=== PATIENT | female | born 2000 | race Caucasian/White ===

== ENCOUNTER 2023-05-07 17:58 | Emergency (ER) | payer OTHER ==
--- OUTSIDE RECORDS SUMMARY | 2023-05-07 18:29 | XMS REPORT | Continuity of Care Document ---
:2000 Author Organization [facility] t Address [address] [facility] [address] [place] [address] Care Team Providers Name Role Phone Tyler Lazcano MD Primary Care Physician Taylor Thrasher Attending Clinician Unavailable Codie Gibbs Attending Clinician Unavailable RAEANN ALEJANDRE Attending Clinician Unavailable TALI REYES Attending Clinician Unavailable Tali Ellison Attending Clinician Unknown, Attending Attending Clinician Unavailable Lab, [facility] Attending Clinician Unavailable Raeann Alejandre MD Attending Clinician Doctor Unassigned, [place] Attending Clinician Unavailable BRYN RAHMAN Attending Clinician Unavailable Jackie BARRAZA, Bryn Lindsey Attending Clinician MERCEDES BELL Attending Clinician Unavailable Willian BARRAZA, Adam Attending Clinician Gregor Rojas Attending Clinician Unavailable UNKNOWN, ATTENDING Attending Clinician Unavailable Princess Sage MD Attending Clinician Pamela Owen MD Attending Clinician ADAM CHRISTIAN Attending Clinician Unavailable Neymar Arrieta Attending Clinician Unavailable HANSA MOSCOSO Attending Clinician Unavailable PAMELA OWEN Attending Clinician Unavailable Manuel Trinh Attending Clinician Unavailable Marcin BARRAZA, Toni Attending Clinician TONI DE OLIVEIRA Attending Clinician Unavailable Alek MCGILLSW, Aydee Pratt Attending Clinician Neno BARRAZA, Tyler Ceja Attending Clinician Maykel Dutta MD Attending Clinician Lisa MULLEN, Linn Alcantara Attending Clinician Unavailable Madhavi MCGILLSW, Matilde Benavides Attending Clinician Unavailable Ebony Alcantara MD Attending Clinician EBONY ALCANTARA Attending Clinician Unavailable Mo BARRAZA, Laura Guzmán Attending Clinician [phone] Bishop BONDS, Ariana Attending Clinician Taylor Thrasher Admitting Clinician Unavailable EBONY ALCANTARA Admitting Clinician Unavailable Payers Payer Name Policy Type Policy Number Effective Date Expiration Date [facility] [id number] 2017 CHOICE MEDICAID 00:00:00 Problems Condition Condition Condition Status Onset Resolution Last Treating Co mments Source Name Details Category Date Date Treatment Clinician Date Rubella Rubella Disease Active Univers non-immune non-immune 6-16 it y of status, status, 00:00: [place] antepartum antepartum 00 Me dical Branch Susceptibl Susceptibl Disease Active U nivers e to e to 6-16 ity of Varicella Varicella 00:00: [place] (non-immun (non-immun 00 Me dical e), e), Branch currently currently in second in second trimester trimester Supervisio Supervisio Disease Active U nivers n of young n of young 6-15 it y of primigravi primigravi [place] da, second da, second 00 Me dical trimester trimester Bran ch Disease Active Uni vers examinatio examinatio 6-15 it y of n or test, n [place] test, [place] positive positive 00 Medica l result result Branch Drug use Drug use Disease Active Unive rs affecting affecting 6-15 ity of , , [place] antepartum antepartum 00 Me dical , second , second Branch trimester trimester History of History of Disease Active U nivers seizure seizure 6-15 ity of 00:00: [place] [facility] Overweight Overweight Disease Active U nivers (BMI (BMI 6-15 ity of 25.0-29.9) 25.0-29.9) [place] 00 [place] History of History of Disease Active U nivers anxiety anxiety 6-15 ity of 00:00: [place] [facility] History of History of Disease Active U nivers depression depression 6-15 it y of 00:00: [place] [facility] Seizure Seizure Disease Active Method[facility] disorder disorder 6-07 st during during 00:00: [facility] l in second in second trimester trimester Anxiety, Anxiety, Disease Active 2014-08 Unive rs UNSPECIFIE UNSPECIFIE 2-23 it y of D-BY HX D-BY HX 00:00: [place] [facility] Bipolar Bipolar Disease Active 2014-08 Univers affective affective 2-23 [place] of disorder, disorder, [place] depressed[place] depressed, 00 Me dical severe, severe, Branch with with psychotic psychotic behavior behavior (R/O (R/O BIPOLAR I BIPOLAR I VS II VS VS II VS MDD ) MDD ) Depression Depression Disease Active 2014-08 U nivers 1-25 ity of 00:00: Medical Branch Allergies, Adverse Reactions, Alerts Allergy Allergy Status Severity Reaction(s) Onset Inactive Treating Comm ents Source Name Type Date Date Clinician No Known DA Active U [facility]ie 9-07 Clear s 00:00: Sandhu 00 [facility] No Known DA Active U 2022- [facility] Allergie 7-05 Clear s 00:00: Sandhu [facility] No Known DA Active U [facility] Allergie 9-18 Clear s 00:00: Sandhu 00 [facility] No Known DA Active U 2019- [facility] Allergie 2-08 [place] 00:[facility]: d 00 [facility] No Known DA Active U 2019- [facility] Allergie 2-08 Clear s 00:00: Sandhu 00 [facility] No Known DA Active U 2016- [facility] Allergie 7-18 Clear s 00:00: Sandhu 00 [facility] No Known DA Active U 2016- [facility] Allergie 7-18 Clear s 00:00: Sandhu 00 [facility] NO KNOWN Drug Active Univers ALLERGIE Class ity of S [facility] Social History Social Habit Start Date Stop Date Quantity Comments Source ASSERTION [facility] Gender identity Cheondoism [facility] Sexual orientation [facility] Exposure to 2022-11-06 2022-11-16 Not sure [facility] SARS-CoV-2 (event) 00:00:00 19:12:00 [facility] Alcohol intake 2022-11-16 2022-11-16 0 /d University of 00:00:00 00:00:00 [facility] Tobacco use and 2022-10-27 2022-10-27 Smokeless Universit y of exposure 00:00:00 00:00:00 tobacco non-user [facility] Sex Assigned At 2002 2002 Che[facility]ism 00:00:00 00:00:00 Hospital Smoking Status Start Date Stop Date Source [facility] Medications Ordered Filled Start Stop Current Ordering Indication Dosage Frequency Signature Comments Components Source Medication Medication Date Date Medication? Clinician (SIG) Name Name penicillin 2022- No [id number] 1.210 U nivers g 11-17 ity of benzathine 00:15: 00:23 [place] (BICILLIN 00 :00 Medical L-A) Branch injection 1.2 Million Units penicillin 2022- No [id number] 1.210 1.2 U nivers g 11-17 Million ity of benzathine 00:15: 00:23 [place] (BICILLIN 00 :00 Intramuscu Medi anabel L-A) lar, ONCE, Branch injection 1 dose, On 1.2 Million Ilda Units 11/16/22 at 1930, CARLOS
Re ason for Anti-Infec tive: Documented Infection< br>Documen tiffanie Infection Site: HEENT
D uration of Therapy: Other (see Comments) penicillin 2022- No [id number] 1.210 U nivers g 11-17 ity of benzathine 00:15: 00:23 [place] (BICILLIN 00 :00 Medical L-A) Branch injection 1.2 Million Units penicillin 0 2022- No [id number] 1.210 1.2 U nivers g 11-17 Million ity of benzathine 00:15: 00:23 [place] (BICILLIN 00 :00 Intramuscu Medi anabel L-A) lar, ONCE, Branch injection 1 dose, On 1.2 Million Ilda Units 11/16/22 at 1930, CARLOS
Re ason for Anti-Infec tive: Documented Infection< br>Documen tiffanie Infection Site: HEENT
D uration of Therapy: Other (see Comments) acetaminoph 2022-0 Yes 325mg Take 1 Uni vers en 325 mg 3-10 tablet by ity o f tablet 08:17: mouth. [address] acetaminoph 2022-0 Yes 325mg Take 1 Uni vers en 325 mg 3-10 tablet by ity o f tablet 08:17: mouth. [address] acetaminoph 2023-0 Yes 325mg Take 1 Uni vers en 325 mg 3-10 tablet by ity o f tablet 08:17: mouth. [address] acetaminoph 3-0 Yes 325mg Take 1 Uni vers en 325 mg 3-10 tablet by ity o f tablet 08:17: mouth. [address] acetaminoph 3-0 Yes 325mg Take 1 Uni vers en 325 mg 3-10 tablet by ity o f tablet 08:17: mouth. [address] acetaminoph 3-0 Yes 325mg Take 1 Uni vers en 325 mg 3-10 tablet by ity o f tablet 08:17: mouth. [address] acetaminoph 2023-0 Yes 325mg Take 1 Uni vers en 325 mg 3-10 tablet by ity o f tablet 08:17: mouth. [address] acetaminoph 2023-0 Yes 325mg Take 1 Uni vers en 325 mg 3-10 tablet by ity o f tablet 08:17: mouth. [address] acetaminoph 2023-0 Yes 325mg Take 1 Uni vers en 325 mg 3-10 tablet by ity o f tablet 08:17: mouth. [address] acetaminoph 2023-0 Yes 325mg Take 1 Uni vers en 325 mg 3-10 tablet by ity o f tablet 08:17: mouth. [address] levETIRAcet 2022-0 Yes [id number] 1500mg Take 2 Univers am (KEPPRA) 3-10 tablets by it y of 750 mg 00:00: mouth in [place] tablet 00 the Medical morning Branch and 2 tablets in the evening. levETIRAcet 2022-0 Yes [id number] 1500mg Take 2 Univers am (KEPPRA) 3-10 tablets by it y of 750 mg 00:00: mouth in [place] tablet 00 the Medical morning Branch and 2 tablets in the evening. levETIRAcet 2022-0 Yes [id number] 1500mg Take 2 Univers am (KEPPRA) 3-10 tablets by it y of 750 mg 00:00: mouth in [place] tablet 00 the Medical morning Branch and 2 tablets in the evening. levETIRAcet 2022-0 Yes [id number] 1500mg Take 2 Univers am (KEPPRA) 3-10 tablets by it y of 750 mg 00:00: mouth in [place] tablet 00 the Medical morning Branch and 2 tablets in the evening. levETIRAcet 2022-0 Yes [id number] 1500mg Take 2 Univers am (KEPPRA) 3-10 tablets by it y of 750 mg 00:00: mouth in [place] tablet 00 the Medical morning Branch and 2 tablets in the evening. levETIRAcet 3-0 Yes [id number] 1500mg Take 2 Univers am (KEPPRA) 3-10 tablets by it y of 750 mg 00:00: mouth in [place] tablet 00 the [facility] morning Branch and 2 tablets in the evening. levETIRAcet 3-0 Yes [id number] 1500mg Take 2 Univers am (KEPPRA) 3-10 tablets by it y of 750 mg 00:00: mouth in [place] tablet 00 the Medical morning Branch and 2 tablets in the evening. levETIRAcet 2022-0 Yes [id number] 1500mg Take 2 Univers am (KEPPRA) 3-10 tablets by it y of 750 mg 00:00: mouth in [place] tablet 00 the Medical morning Branch and 2 tablets in the evening. levETIRAcet 2022-0 Yes [id number] 1500mg Take 2 Univers am (KEPPRA) 3-10 tablets by it y of 750 mg 00:00: mouth in [place] tablet 00 the Medical morning Branch and 2 tablets in the evening. levETIRAcet 2022-0 Yes [id number] 1500mg Take 2 Univers am (KEPPRA) 3-10 tablets by it y of 750 mg 00:00: mouth in [place] tablet 00 the Medical morning Branch and 2 tablets in the evening. VITAFOL 2022-0 Yes Univers ULTRA 29 mg 3-03 ity of iron- 1 00:00: [place] mg-200 mg 00 Medical Cap Branch VITAFOL 2022-0 Yes Univers ULTRA 29 mg 3-03 ity of iron- 1 00:00: [place] mg-200 mg 00 Medical Cap Branch VITAFOL 2022-0 Yes Univers ULTRA 29 mg 3-03 ity of iron- 1 00:00: [place] mg-200 mg 00 Medical Cap Branch VITAFOL 2022-0 Yes Univers ULTRA 29 mg 3-03 ity of iron- 1 00:00: [place] mg-200 mg 00 Medical Cap Branch VITAFOL 2022-0 Yes Univers ULTRA 29 mg 3-03 ity of iron- 1 00:00: [place] mg-200 mg 00 Medical Cap Branch VITAFOL 2022-0 Yes Univers ULTRA 29 mg 3-03 ity of iron- 1 00:00: [place] mg-200 mg 00 Medical Cap Branch VITAFOL 2022-0 Yes Univers ULTRA 29 mg 3-03 ity of iron- 1 00:00: [place] mg-200 mg 00 Medical Cap Branch VITAFOL 2022-0 Yes Univers ULTRA 29 mg 3-03 ity of iron- 1 00:00: [place] mg-200 mg 00 Medical Cap Branch VITAFOL 2022-0 Yes Univers ULTRA 29 mg 3-03 ity of iron- 1 00:00: [place] mg-200 mg 00 Medical Cap Branch VITAFOL 0 Yes Univers ULTRA 29 mg 3-03 ity of iron- 1 00:00: [place] mg-200 mg 00 Medical Cap Branch levETIRAcet 2021-08- No [id number] 1000mg Take 1 Univers am (KEPPRA) 09-02 tablet by it y of 1,000 mg 00:00: 05:59 [place] tablet [place] :00 the Medical morning Branch and 1 tablet at noon and 1 tablet in the evening. Do all this for 90 days. levETIRAcet 2021-08- No [id number] 1000mg Take 1 Univers am (KEPPRA) 09-02 tablet by it y of 1,000 mg 00:00: 05:59 [place] tablet 00 :00 the Medical morning Branch and 1 tablet at noon and 1 tablet in the evening. Do all this for 90 days. levETIRAcet 2021-08- No [id number] 1000mg Take 1 Univers am (KEPPRA) 09-02 tablet by it y of 1,000 mg 00:00: 05:59 [place] tablet 00 :00 the Medical morning Branch and 1 tablet at noon and 1 tablet in the evening. Do all this for 90 days. LEVETIRACET Yes [id number] TAKE 2 U nivers AM 1,000 mg 7-11 TABLETS BY it y of tablet 00:00: MOUTH TWICE A Medical DAY Branch LEVETIRACET 0 Yes [id number] TAKE 2 U nivers AM 1,000 mg 7-11 TABLETS BY it y of tablet 00:00: MOUTH TWICE A Medical DAY Branch LEVETIRACET 2021-0 Yes [id number] TAKE 2 U nivers AM 1,000 mg 7-11 TABLETS BY it y of tablet 00:00: MOUTH TWICE A Medical DAY Branch LEVETIRACET 2021-0 Yes [id number] TAKE 2 U nivers AM 1,000 mg 7-11 TABLETS BY it y of tablet 00:00: MOUTH TWICE A Medical DAY Branch LEVETIRACET 2021-0 Yes [id number] TAKE 2 U nivers AM 1,000 mg 7-11 TABLETS BY it y of tablet 00:00: MOUTH TWICE A Medical DAY Branch LEVETIRACET 2021-0 3- No [id number] TAKE 2 Univers AM 1,000 mg 7-11 03-10 TABLETS BY i ty of tablet 00:00: 00:00 MOUTH [place] 00 :00 TWICE A Medical DAY Branch LEVETIRACET 2021-0 2023- No [id number] TAKE 2 Univers AM 1,000 mg 7-11 03-10 TABLETS BY i ty of tablet 00:00: 00:00 MOUTH [place] 00 :00 TWICE A Medical DAY Branch LEVETIRACET 2021-0 2023- No [id number] TAKE 2 Univers AM 1,000 mg 7-11 03-10 TABLETS BY i ty of tablet 00:00: 00:00 MOUTH [place] 00 :00 TWICE A Medical DAY Branch LEVETIRACET 2021-0 3- No [id number] TAKE 2 Univers AM 1,000 mg 7-11 03-10 TABLETS BY i ty of tablet 00:00: 00:00 MOUTH [place] 00 :00 TWICE A Medical DAY Branch LEVETIRACET 2021-0 3- No [id number] TAKE 2 Univers AM 1,000 mg 7-11 03-10 TABLETS BY i ty of tablet 00:00: 00:00 MOUTH [place] 00 :00 TWICE A Medical DAY Branch LEVETIRACET 2021-0 3- No [id number] TAKE 2 Univers AM 1,000 mg 7-11 03-10 TABLETS BY i ty of tablet 00:00: 00:00 MOUTH [place] 00 :00 TWICE A Medical DAY Branch levETIRAcet 2021-0 Yes [id number] 2000mg Take 2 Univers am 1,000 mg 6-13 tablets by it y of tablet 00:00: mouth 2 [place] 00 (two) Medical times Branch daily. levETIRAcet 2021-0 2- No [id number] 2000mg Take 2 Univers am 1,000 mg 6-13 07-11 tablets by i ty of tablet 00:00: 00:00 mouth 2 [place] 00 :00 (two) Medical times Branch daily. foLIC acid 2021-0 Yes [id number] 1mg Take 1 Un sangeetha 1 mg tablet 4-20 tablet by ity of 00:00: mouth [place] 00 daily. Medical Branch foLIC acid 2021-0 Yes [id number] 1mg Take 1 Un sangeetha 1 mg tablet 4-20 tablet by ity of 00:00: mouth [place] 00 daily. Medical Branch foLIC acid 2-0 Yes [id number] 1mg Take 1 Un sangeetha 1 mg tablet 4-20 tablet by ity of 00:00: mouth [place] 00 daily. Medical Branch foLIC acid 2021-0 Yes [id number] 1mg Take 1 Un sangeetha 1 mg tablet 4-20 tablet by ity of 00:00: mouth [place] 00 daily. Medical Branch foLIC acid 2021-0 Yes [id number] 1mg Take 1 Un sangeetha 1 mg tablet 4-20 tablet by ity of 00:00: mouth [place] 00 daily. Medical Branch foLIC acid 2021-0 Yes [id number] 1mg Take 1 Un sangeetha 1 mg tablet 4-20 tablet by ity of 00:00: mouth [place] 00 daily. Medical Branch foLIC acid 2021-0 Yes [id number] 1mg Take 1 Un sangeetha 1 mg tablet 4-20 tablet by ity of 00:00: mouth [place] 00 daily. Medical Branch foLIC acid 2021-0 Yes [id number] 1mg Take 1 Un sangeetha 1 mg tablet 4-20 tablet by ity of 00:00: mouth [place] 00 daily. Medical Branch foLIC acid 2021-0 Yes [id number] 1mg Take 1 Un sangeetha 1 mg tablet 4-20 tablet by ity of 00:00: mouth [place] 00 daily. Medical Branch foLIC acid 2021-0 Yes [id number] 1mg Take 1 Un sangeetha 1 mg tablet 4-20 tablet by ity of 00:00: mouth [place] 00 daily. Medical Branch foLIC acid 2-0 Yes [id number] 1mg Take 1 Un sangeetha 1 mg tablet 4-20 tablet by ity of 00:00: mouth [place] 00 daily. Medical Branch foLIC acid 2-0 Yes [id number] 1mg Take 1 Un sangeetha 1 mg tablet 4-20 tablet by ity of 00:00: mouth [place] 00 daily. Medical Branch foLIC acid 2-0 Yes [id number] 1mg Take 1 Un sangeetha 1 mg tablet 4-20 tablet by ity of 00:00: mouth [place] 00 daily. Medical Branch foLIC acid 2-0 Yes [id number] 1mg Take 1 Un sangeetha 1 mg tablet 4-20 tablet by ity of 00:00: mouth [place] 00 daily. Medical Branch foLIC acid 2-0 Yes [id number] 1mg Take 1 Un sangeetha 1 mg tablet 4-20 tablet by ity of 00:00: mouth [place] 00 daily. Medical Branch foLIC acid 2021-0 Yes [id number] 1mg Take 1 Un sangeetha 1 mg tablet 4-20 tablet by ity of 00:00: mouth 00 daily. Medical Branch foLIC acid 2021-0 Yes [id number] 1mg Take 1 Un sangeetha 1 mg tablet 4-20 tablet by ity of 00:00: mouth 00 daily. Medical Branch foLIC acid 2021-0 Yes [id number] 1mg Take 1 Un sangeetha 1 mg tablet 4-20 tablet by ity of 00:00: mouth 00 daily. Medical Branch levETIRAcet 2020-0 Yes [id number] 2000mg Take 2 Univers am 1,000 mg 2-26 tablets by it y of tablet 00:00: mouth (two) Medical times Branch daily. levETIRAcet 2020-0 Yes [id number] 2000mg Take 2 Univers am 1,000 mg 2-26 tablets by it y of tablet 00:00: mouth (two) Medical times Branch daily. levETIRAcet 2020-2021- No [id number] 2000mg Take 2 Univers am 1,000 mg 2-26 06-13 tablets by i ty of tablet 00:00: 00:00 mouth 2 [place] 00 :00 (two) Medical times Branch daily. bacitracin- 2020-0 Yes [id number] Apply to Univers polymyxin B 4-05 [id number] area(s) 2 i ty of (POLYSPORIN 00:00: () ) 00 times Medical 500-10,000 daily. Branch unit/gram topical ointment ibuprofen 2020-0 Yes [id number] 600mg Take 1 Univers 600 mg 4-05 [id number] tablet by ity of tablet 00:00: mouth 00 every 8 Medical (eight) Branch hours as needed for Alternate with [place] for pain scale 1-3. bacitracin- 2020-0 Yes [id number] Apply to Univers polymyxin B 4-05 [id number] area(s) 2 i ty of (POLYSPORIN 00:00: () [place] ) 00 times Medical 500-10,000 daily. Branch unit/gram topical ointment ibuprofen 2020-0 Yes [id number] 600mg Take 1 Univers 600 mg 4-05 [id number] tablet by ity of tablet 00:00: mouth 00 every 8 Medical (eight) Branch hours as needed for Alternate with [place] for pain scale 1-3. bacitracin- 2020-0 Yes [id number] Apply to Univers polymyxin B 4-05 [id number] area(s) 2 i ty of (POLYSPORIN 00:00: () [place] ) 00 times Medical 500-10,000 daily. Branch unit/gram topical ointment ibuprofen 2020-0 Yes [id number] 600mg Take 1 Univers 600 mg 4-05 [id number] tablet by ity of tablet 00:00: mouth [place] 00 every 8 Medical (eight) Branch hours as needed for Alternate with [place] for pain scale 1-3. bacitracin- 2020-0 Yes [id number] Apply to Univers polymyxin B 4-05 [id number] area(s) 2 i ty of (POLYSPORIN 00:00: () [place] ) 00 times Medical 500-10,000 daily. Branch unit/gram topical ointment ibuprofen 2020-0 Yes [id number] 600mg Take 1 Univers 600 mg 4-05 [id number] tablet by ity of tablet 00:00: mouth [place] 00 every 8 Medical (eight) Branch hours as needed for Alternate with [place] for pain scale 1-3. bacitracin- 2020-0 Yes [id number] Apply to Univers polymyxin B 4-05 [id number] area(s) 2 i ty of (POLYSPORIN 00:00: () [place] ) 00 times Medical 500-10,000 daily. Branch unit/gram topical ointment ibuprofen 2020-0 Yes [id number] 600mg Take 1 Univers 600 mg 4-05 [id number] tablet by ity of tablet 00:00: mouth [place] 00 every 8 Medical (eight) Branch hours as needed for Alternate with [place] for pain scale 1-3. bacitracin- 2020-0 Yes [id number] Apply to Univers polymyxin B 4-05 [id number] area(s) 2 i ty of (POLYSPORIN 00:00: () [place] ) 00 times Medical 500-10,000 daily. Branch unit/gram topical ointment ibuprofen 2020-0 Yes [id number] 600mg Take 1 Univers 600 mg 4-05 [id number] tablet by ity of tablet 00:00: mouth [place] 00 every 8 Medical (eight) Branch hours as needed for Alternate with [place] for pain scale 1-3. bacitracin- 2020-0 Yes [id number] Apply to Univers polymyxin B 4-05 [id number] area(s) 2 i ty of (POLYSPORIN 00:00: (two) [place] ) 00 times Medical 500-10,000 daily. Branch unit/gram topical ointment ibuprofen 2020-0 Yes [id number] 600mg Take 1 Univers 600 mg 4-05 [id number] tablet by ity of tablet 00:00: mouth [place] 00 every 8 Medical (eight) Branch hours as needed for Alternate with [place] for pain scale 1-3. bacitracin- 2020-0 Yes [id number] Apply to Univers polymyxin B 4-05 [id number] area(s) 2 i ty of (POLYSPORIN 00:00: (two) [place] ) 00 times Medical 500-10,000 daily. Branch unit/gram topical ointment ibuprofen 2020-0 Yes [id number] 600mg Take 1 Univers 600 mg 4-05 [id number] tablet by ity of tablet 00:00: mouth [place] 00 every 8 Medical (eight) Branch hours as needed for Alternate with [place] for pain scale 1-3. ibuprofen 2020-0 Yes [id number] 600mg Take 1 Univers 600 mg 4-05 [id number] tablet by ity of tablet 00:00: mouth [place] 00 every 8 Medical (eight) Branch hours as needed for Alternate with [place] for pain scale 1-3. ibuprofen 2020-0 Yes [id number] 600mg Take 1 Univers 600 mg 4-05 [id number] tablet by ity of tablet 00:00: mouth [place] 00 every 8 Medical (eight) Branch hours as needed for Alternate with [place] for pain scale 1-3. ibuprofen 2020-0 Yes [id number] 600mg Take 1 Univers 600 mg 4-05 [id number] tablet by ity of tablet 00:00: mouth [place] 00 every 8 Medical (eight) Branch hours as needed for Alternate with [place] for pain scale 1-3. ibuprofen 2020-0 Yes [id number] 600mg Take 1 Univers 600 mg 4-05 [id number] tablet by ity of tablet 00:00: mouth [place] 00 every 8 Medical (eight) Branch hours as needed for Alternate with [place] for pain scale 1-3. ibuprofen 2020-0 Yes [id number] 600mg Take 1 Univers 600 mg 4-05 [id number] tablet by ity of tablet 00:00: mouth [place] 00 every 8 Medical (eight) Branch hours as needed for Alternate with [place] for pain scale 1-3. ibuprofen 2020-0 Yes [id number] 600mg Take 1 Univers 600 mg 4-05 [id number] tablet by ity of tablet 00:00: mouth [place] 00 every 8 Medical (eight) Branch hours as needed for Alternate with [place] for pain scale 1-3. ibuprofen 2020-0 Yes [id number] 600mg Take 1 Univers 600 mg 4-05 [id number] tablet by ity of tablet 00:00: mouth [place] 00 every 8 Medical (eight) Branch hours as needed for Alternate with [place] for pain scale 1-3. ibuprofen 2020-0 Yes [id number] 600mg Take 1 Univers 600 mg 4-05 [id number] tablet by ity of tablet 00:00: mouth [place] 00 every 8 Medical (eight) Branch hours as needed for Alternate with [place] for pain scale 1-3. ibuprofen 2020-0 Yes [id number] 600mg Take 1 Univers 600 mg 4-05 [id number] tablet by ity of tablet 00:00: mouth [place] 00 every 8 Medical (eight) Branch hours as needed for Alternate with [place] for pain scale 1-3. ibuprofen 2020-0 Yes [id number] 600mg Take 1 Univers 600 mg 4-05 [id number] tablet by ity of tablet 00:00: mouth [place] 00 every 8 Medical (eight) Branch hours as needed for Alternate with [place] for pain scale 1-3. bacitracin- 2019-0 2022- No [id number] Apply to Univers polymyxin B 4-05 03-10 [id number] area(s) 2 ity of (POLYSPORIN 00:00: 00:00 (two) [place] ) 00 :00 times Medical 500-10,000 daily. Branch unit/gram topical ointment bacitracin- 0 2022- No [id number] Apply to Univers polymyxin B 4-05 03-10 [id number] area(s) 2 ity of (POLYSPORIN 00:00: 00:00 (two) [place] ) 00 :00 times Medical 500-10,000 daily. Branch unit/gram topical ointment bacitracin- 2020-0 2022- No [id number] Apply to Univers polymyxin B 4-05 03-10 [id number] area(s) 2 ity of (POLYSPORIN 00:00: 00:00 (two) [place] ) 00 :00 times Medical 500-10,000 daily. Branch unit/gram topical ointment bacitracin- 2020-0 2023- No [id number] Apply to Univers polymyxin B 4-05 03-10 [id number] area(s) 2 ity of (POLYSPORIN 00:00: 00:00 (two[place] ) 00 :00 times Medical 500-10,000 daily. Branch unit/gram topical ointment bacitracin- 2020-0 2023- No [id number] Apply to Univers polymyxin B 4-05 03-10 [id number] area(s) 2 ity of (POLYSPORIN 00:00: 00:00 (two[place] ) 00 :00 times Medical 500-10,000 daily. Branch unit/gram topical ointment bacitracin- 2020-0 2023- No [id number] Apply to Univers polymyxin B 4-05 03-10 [id number] area(s) 2 ity of (POLYSPORIN 00:00: 00:00 (two[place] ) 00 :00 times Medical 500-10,000 daily. Branch unit/gram topical ointment mupirocin 2 2020-0 Yes [id number] Apply to Univers % ointment 2-04 area(s) 3 ity of 00:00: (three) [place] 00 times Medical daily. Branch mupirocin 2 2020-0 Yes [id number] Apply to Univers % ointment 2-04 area(s) 3 ity of 00:00: (three) [place] 00 times Medical daily. Branch mupirocin 2 2020-0 Yes [id number] Apply to Univers % ointment 2-04 area(s) 3 ity of 00:00: (three) [place] 00 times Medical daily. Branch mupirocin 2 2020-0 Yes [id number] Apply to Univers % ointment 2-04 area(s) 3 ity of 00:00: (three) [place] 00 times Medical daily. Branch mupirocin 2 2020-0 Yes [id number] Apply to Univers % ointment 2-04 area(s) 3 ity of 00:00: (three) [place] 00 times Medical daily. Branch mupirocin 2 2020-0 Yes [id number] Apply to [facility] % ointment 2-04 area(s) 3 ity of 00:00: (three) [place] 00 times Medical daily. Branch mupirocin 2 2020-0 Yes [id number] Apply to [facility] % ointment 2-04 area(s) 3 ity of 00:00: (three) [place] 00 times Medical daily. Branch mupirocin 2 2020-0 Yes [id number] Apply to [facility] % ointment 2-04 area(s) 3 ity of 00:00: (three) [place] 00 times Medical daily. Branch mupirocin 2 2020-0 Yes [id number] Apply to [facility] % ointment 2-04 area(s) 3 ity of 00:00: (three) [place] 00 times Medical daily. Branch mupirocin 2 2020-0 Yes [id number] Apply to [facility] % ointment 2-04 area(s) 3 ity of 00:00: (three) [place] 00 times Medical daily. Branch mupirocin 2 2020-0 Yes [id number] Apply to [facility] % ointment 2-04 area(s) 3 ity of 00:00: (three) [place] 00 times Medical daily. Branch mupirocin 2 2020-0 Yes [id number] Apply to [facility] % ointment 2-04 area(s) 3 ity of 00:00: (three) [place] 00 times Medical daily. Branch mupirocin 2 2020-0 Yes [id number] Apply to [facility] % ointment 2-04 area(s) 3 ity of 00:00: (three) [place] 00 times Medical daily. Branch mupirocin 2 2020-0 Yes [id number] Apply to [facility] % ointment 2-04 area(s) 3 ity of 00:00: (three) [place] 00 times Medical daily. Branch mupirocin 2 2020-0 Yes [id number] Apply to [facility] % ointment 2-04 area(s) 3 ity of 00:00: (three) [place] 00 times Medical daily. Branch mupirocin 2 2020-0 Yes [id number] Apply to [facility] % ointment 2-04 area(s) 3 ity of 00:00: (three) [place] 00 times Medical daily. Branch mupirocin 2 2020-0 Yes [id number] Apply to [facility] % ointment 2-04 area(s) 3 ity of 00:00: (three) [place] 00 times Medical daily. Branch mupirocin 2 2020-0 Yes [id number] Apply to [facility] % ointment 2-04 area(s) 3 ity of 00:00: (three) [place] 00 times Medical daily. Branch Yes [id number] 1{tbl} Take 1 [facility] multivitami 6-15 tablet by ity of n ( 00:00: mouth [place] VITAMIN) 00 daily. Medical tablet Branch Yes [id number] 1{tbl} Take 1 [facility] multivitami 6-15 tablet by ity of n ( 00:00: mouth [place] VITAMIN) 00 daily. Medical tablet Branch Yes [id number] 1{tbl} Take 1 [facility] multivitami 6-15 tablet by ity of n ( 00:00: mouth [place] VITAMIN) 00 daily. Medical tablet Branch Yes [id number] 1{tbl} Take 1 [facility] multivitami 6-15 tablet by ity of n ( 00:00: mouth [place] VITAMIN) 00 daily. Medical tablet Branch Yes [id number] 1{tbl} Take 1 [facility] multivitami 6-15 tablet by ity of n ( 00:00: mouth [place] VITAMIN) 00 daily. Medical tablet Branch Yes [id number] 1{tbl} Take 1 [facility] multivitami 6-15 tablet by ity of n ( 00:00: mouth [place] VITAMIN) 00 daily. Medical tablet Branch Yes [id number] 1{tbl} Take 1 [facility] multivitami 6-15 tablet by ity of n ( 00:00: mouth [place] VITAMIN) 00 daily. Medical tablet Branch Yes [id number] 1{tbl} Take 1 [facility] multivitami 6-15 tablet by ity of n ( 00:00: mouth [place] VITAMIN) 00 daily. Medical tablet Branch Yes [id number] 1{tbl} Take 1 [facility] multivitami 6-15 tablet by ity of n ( 00:00: mouth [place] VITAMIN) 00 daily. Medical tablet Branch Yes [id number] 1{tbl} Take 1 [facility] multivitami 6-15 tablet by ity of n ( 00:00: mouth [place] VITAMIN) 00 daily. Medical tablet Branch Yes [id number] 1{tbl} Take 1 [facility] multivitami 6-15 tablet by ity of n ( 00:00: mouth [place] VITAMIN) 00 daily. Medical tablet Branch Yes [id number] 1{tbl} Take 1 [facility] multivitami 6-15 tablet by ity of n ( 00:00: mouth [place] VITAMIN) 00 daily. Medical tablet Branch Yes [id number] 1{tbl} Take 1 [facility] multivitami 6-15 tablet by ity of n ( 00:00: mouth [place] VITAMIN) 00 daily. Medical tablet Branch Yes [id number] 1{tbl} Take 1 [facility] multivitami 6-15 tablet by ity of n ( 00:00: mouth [place] VITAMIN) 00 daily. Medical tablet Branch Yes [id number] 1{tbl} Take 1 [facility] multivitami 6-15 tablet by ity of n ( 00:00: mouth [place] VITAMIN) 00 daily. Medical tablet Branch Yes [id number] 1{tbl} Take 1 [facility] multivitami 6-15 tablet by ity of n ( 00:00: mouth [place] VITAMIN) 00 daily. Medical tablet Branch Yes [id number] 1{tbl} Take 1 [facility] multivitami 6-15 tablet by ity of n ( 00:00: mouth [place] VITAMIN) 00 daily. Medical tablet Branch Yes [id number] 1{tbl} Take 1 [facility] multivitami 6-15 tablet by ity of n ( 00:00: mouth [place] VITAMIN) 00 daily. Medical tablet Branch Yes 1{tbl} QD Take 1 [facility] di vit,calc76- 6-[address] iron-folic 21:01: mouth [facility] 29 mg iron- 31 every l 1 mg tablet morning. per tablet acetaminoph Yes 325mg Q6H Take 325 M ethodi en 6-[address] (TYLENOL) 21:01: mouth [facility] 325 MG 31 every 6 l tablet (six) hours as needed for fever. Yes 1{tbl} QD Take 1 [facility] di vit,calc76- 6-[address] iron-folic 21:01: mouth [facility] a 29 mg iron- 31 every l 1 mg tablet morning. per tablet acetaminoph Yes 325mg Q6H Take 325 M ethodi en 6-[address] (TYLENOL) 21:01: mouth [facility] 325 MG 31 every 6 l tablet (six) hours as needed for fever. Yes 1{tbl} QD Take 1 [facility] di vit,calc76- 6-[address] iron-folic 21:01: mouth [facility] a 29 mg iron- 31 every l 1 mg tablet morning. per tablet acetaminoph Yes 325mg Q6H Take 325 M ethodi en 6-[address] (TYLENOL) 21:01: mouth [facility] 325 MG 31 every 6 l tablet (six) hours as needed for fever. Yes 1{tbl} QD Take 1 [facility] di vit,calc76- 6-[address] iron-folic 21:01: mouth [facility] 29 mg iron- 31 every l 1 mg tablet morning. per tablet acetaminoph Yes 325mg Q6H Take 325 M ethodi en 6-[address] (TYLENOL) 21:01: mouth [facility] 325 MG 31 every 6 l tablet (six) hours as needed for fever. Immunizations Ordered Immunization Filled Immunization Date Status Commen ts Source Name Name TDAP (ADACEL) VACCINE 2019-09-23 Completed Uni versity of 00:00:00 [facility] TDAP (ADACEL) VACCINE 2019-09-23 Completed Uni versity of 00:00:00 [facility] TDAP (ADACEL) VACCINE 2019-09-23 Completed Uni versity of 00:00:00 [facility] TDAP (ADACEL) VACCINE 2019-09-23 Completed Uni versity of 00:00:00 [facility] TDAP (ADACEL) VACCINE 2019-09-23 Completed Uni versity of 00:00:00 [place] [facility] TDAP (ADACEL) VACCINE 2019-09-23 Completed Uni versity of 00:00:00 [place] [facility] TDAP (ADACEL) VACCINE 2019-09-23 Completed Uni versity of 00:00:00 [place] [facility] TDAP (ADACEL) VACCINE 2019-09-23 Completed Uni versity of 00:00:00 [facility] TDAP (ADACEL) VACCINE 2019-09-23 Completed Uni versity of 00:00:00 [facility] TDAP (ADACEL) VACCINE 2019-09-23 Completed Uni versity of 00:00:00 [facility] TDAP (ADACEL) VACCINE 2019-09-23 Completed Uni versity of 00:00:00 [place] [facility] TDAP (ADACEL) VACCINE 2019-09-23 Completed Uni versity of 00:00:00 [place] [facility] TDAP (ADACEL) VACCINE 2019-09-23 Completed Uni versity of 00:00:00 [place] [facility] TDAP (ADACEL) VACCINE 2019-09-23 Completed Uni versity of 00:00:00 [place] [facility] TDAP (ADACEL) VACCINE 2019-09-23 Completed Uni versity of 00:00:00 [place] [facility] TDAP (ADACEL) VACCINE 2019-09-23 Completed Uni versity of 00:00:00 [place] [facility] TDAP (ADACEL) VACCINE 2019-09-23 Completed Uni versity of 00:00:00 [facility] TDAP (ADACEL) VACCINE 2019-09-23 Completed Uni versity of 00:00:00 [facility] Influenza Virus 2015-07-14 Completed Universit y of Vaccine [facility] Nasal 00:00:00 [facility] HPV9 2015-07-14 Completed University of 00:00:00 [facility] Influenza Virus 2015-07-14 Completed Universit y of Vaccine [place] Nasal 00:00:00 [facility] HPV9 2015-07-14 Completed University of 00:00:00 [facility] Influenza Virus 2015-07-14 Completed Universit y of Vaccine [facility] Nasal 00:00:00 [facility] HPV9 2015-07-14 Completed University of 00:00:00 [facility] Influenza Virus 2015-07-14 Completed Universit y of Vaccine [facility] Nasal 00:00:00 [facility] HPV9 2015-07-14 Completed University of 00:00:00 [facility] Influenza Virus 2015-07-14 Completed Universit y of Vaccine [facility] Nasal 00:00:00 [facility] HPV9 2015-07-14 Completed University of 00:00:00 [facility] Influenza Virus 2015-07-14 Completed Universit y of Vaccine [place] Nasal 00:00:00 [facility] HPV9 2015-07-14 Completed University of 00:00:00 [facility] Influenza Virus 2015-07-14 Completed Universit y of Vaccine [facility] Nasal 00:00:00 [facility] HPV9 2015-07-14 Completed University of 00:00:00 [facility] Influenza Virus 2015-07-14 Completed Universit y of Vaccine [place] Nasal 00:00:00 [facility] HPV9 2015-07-14 Completed University of 00:00:00 [facility] Influenza Virus 2015-07-14 Completed Universit y of Vaccine [facility] Nasal 00:00:00 [facility] HPV9 2015-07-14 Completed University of 00:00:00 [facility] Influenza Virus 2015-07-14 Completed Universit y of Vaccine [place] Nasal 00:00:00 [facility] HPV9 2015-07-14 Completed University of 00:00:00 [facility] Influenza Virus 2015-07-14 Completed Universit y of Vaccine [facility] Nasal 00:00:00 [facility] HPV9 2015-07-14 Completed University of 00:00:00 [facility] Influenza Virus 2015-07-14 Completed Universit y of Vaccine [facility] Nasal 00:00:00 [facility] HPV9 2015-07-14 Completed University of 00:00:00 [facility] Influenza Virus 2015-07-14 Completed Universit y of Vaccine [facility] Nasal 00:00:00 [facility] HPV9 2015-07-14 Completed University of 00:00:00 [facility] Influenza Virus 2015-07-14 Completed Universit y of Vaccine [facility] Nasal 00:00:00 [facility] HPV9 2015-07-14 Completed University of 00:00:00 [facility] Influenza Virus 2015-07-14 Completed Universit y of Vaccine [facility] Nasal 00:00:00 [facility] HPV9 2015-07-14 Completed University of 00:00:00 [facility] Influenza Virus 2015-07-14 Completed Universit y of Vaccine [facility] Nasal 00:00:00 [facility] HPV9 2015-07-14 Completed University of 00:00:00 [facility] Influenza Virus 2015-07-14 Completed Universit y of Vaccine [facility] Nasal 00:00:00 [facility] HPV9 2015-07-14 Completed University of 00:00:00 [facility] Influenza Virus 2015-07-14 Completed Universit y of Vaccine [facility] Nasal 00:00:00 [facility] HPV9 2015-07-14 Completed University of 00:00:00 [facility] TDAP (ADACEL) VACCINE 2013-08-25 Completed Uni versity of 00:00:00 [facility] Meningococcal 2013-08-25 Completed University of Polysaccharide 00:00:00 [facility] (groups A, C, Y and Branc h W-135) conjugate vaccine (MCV4P) HPV 2013-08-25 Completed University of 00:00:00 [facility] Influenza Virus 2013-08-25 Completed Universit y of Vaccine Nasal 00:00:00 [place] [facility] TDAP (ADACEL) VACCINE 2013-08-25 Completed Uni versity of 00:00:00 [facility] Meningococcal 2013-08-25 Completed University of Polysaccharide 00:00:00 [place] [facility] (groups A, C, Y and Branc h W-135) conjugate vaccine (MCV4P) HPV 2013-08-25 Completed University of 00:00:00 [facility] Influenza Virus 2013-08-25 Completed Universit y of Vaccine Nasal 00:00:00 [place] [facility] TDAP (ADACEL) VACCINE 2013-08-25 Completed Uni versity of 00:00:00 [facility] Meningococcal 2013-08-25 Completed University of Polysaccharide 00:00:00 [place] [facility] (groups A, C, Y and Branc h W-135) conjugate vaccine (MCV4P) HPV 2013-08-25 Completed University of 00:00:00 [facility] Influenza Virus 2013-08-25 Completed Universit y of Vaccine Nasal 00:00:00 [place] [facility] TDAP (ADACEL) VACCINE 2013-08-25 Completed Uni versity of 00:00:00 [facility] Meningococcal 2013-08-25 Completed University of Polysaccharide 00:00:00 [place] [facility] (groups A, C, Y and Branc h W-135) conjugate vaccine (MCV4P) HPV 2013-08-25 Completed University of 00:00:00 [facility] Influenza Virus 2013-08-25 Completed Universit y of Vaccine Nasal 00:00:00 [place] [facility] TDAP (ADACEL) VACCINE 2013-08-25 Completed Uni versity of 00:00:00 [facility] Meningococcal 2013-08-25 Completed University of Polysaccharide 00:00:00 [place] [facility] (groups A, C, Y and Branc h W-135) conjugate vaccine (MCV4P) HPV 2013-08-25 Completed University of 00:00:00 [facility] Influenza Virus 2013-08-25 Completed Universit y of Vaccine Nasal 00:00:00 [place] [facility] TDAP (ADACEL) VACCINE 2013-08-25 Completed Uni versity of 00:00:00 [facility] Meningococcal 2013-08-25 Completed University of Polysaccharide 00:00:00 [place] [facility] (groups A, C, Y and Branc h W-135) conjugate vaccine (MCV4P) HPV 2013-08-25 Completed University of 00:00:00 [facility] Influenza Virus 2013-08-25 Completed Universit y of Vaccine Nasal 00:00:00 [place] [facility] TDAP (ADACEL) VACCINE 2013-08-25 Completed Uni versity of 00:00:00 [facility] Meningococcal 2013-08-25 Completed University of Polysaccharide 00:00:00 [place] [facility] (groups A, C, Y and Branc h W-135) conjugate vaccine (MCV4P) HPV 2013-08-25 Completed University of 00:00:00 [facility] Influenza Virus 2013-08-25 Completed Universit y of Vaccine Nasal 00:00:00 [facility] Branch TDAP (ADACEL) VACCINE 2013-08-25 Completed Uni versity of 00:00:00 [facility] Meningococcal 2013-08-25 Completed University of Polysaccharide 00:00:00 [place] [facility] (groups A, C, Y and Branc h W-135) conjugate vaccine (MCV4P) HPV 2013-08-25 Completed University of 00:00:00 [facility] Influenza Virus 2013-08-25 Completed Universit y of Vaccine Nasal 00:00:00 [facility] TDAP (ADACEL) VACCINE 2013-08-25 Completed Uni versity of 00:00:00 [facility] Meningococcal 2013-08-25 Completed University of Polysaccharide 00:00:00 [place] [facility] (groups A, C, Y and Branc h W-135) conjugate vaccine (MCV4P) HPV 2013-08-25 Completed University of 00:00:00 [facility] Influenza Virus 2013-08-25 Completed Universit y of Vaccine Nasal 00:00:00 [place] [facility] TDAP (ADACEL) VACCINE 2013-08-25 Completed Uni versity of 00:00:00 [facility] Meningococcal 2013-08-25 Completed University of Polysaccharide 00:00:00 [place] [facility] (groups A, C, Y and Branc h W-135) conjugate vaccine (MCV4P) HPV 2013-08-25 Completed University of 00:00:00 [facility] Influenza Virus 2013-08-25 Completed Universit y of Vaccine Nasal 00:00:00 [place] [facility] TDAP (ADACEL) VACCINE 2013-08-25 Completed Uni versity of 00:00:00 [facility] Meningococcal 2013-08-25 Completed University of Polysaccharide 00:00:00 [place] [facility] (groups A, C, Y and Branc h W-135) conjugate vaccine (MCV4P) HPV 2013-08-25 Completed University of 00:00:00 [facility] Influenza Virus 2013-08-25 Completed Universit y of Vaccine Nasal 00:00:00 [place] [facility] TDAP (ADACEL) VACCINE 2013-08-25 Completed Uni versity of 00:00:00 [facility] Meningococcal 2013-08-25 Completed University of Polysaccharide 00:00:00 [place] [facility] (groups A, C, Y and Branc h W-135) conjugate vaccine (MCV4P) HPV 2013-08-25 Completed University of 00:00:00 [facility] Influenza Virus 2013-08-25 Completed Universit y of Vaccine Nasal 00:00:00 [facility] TDAP (ADACEL) VACCINE 2013-08-25 Completed Uni versity of 00:00:00 [facility] Meningococcal 2013-08-25 Completed University of Polysaccharide 00:00:00 [place] [facility] (groups A, C, Y and Branc h W-135) conjugate vaccine (MCV4P) HPV 2013-08-25 Completed University of 00:00:00 [facility] Influenza Virus 2013-08-25 Completed Universit y of Vaccine Nasal 00:00:00 [facility] Branch TDAP (ADACEL) VACCINE 2013-08-25 Completed Uni versity of 00:00:00 [facility] Meningococcal 2013-08-25 Completed University of Polysaccharide 00:00:00 [place] [facility] (groups A, C, Y and Branc h W-135) conjugate vaccine (MCV4P) HPV 2013-08-25 Completed University of 00:00:00 [facility] Influenza Virus 2013-08-25 Completed Universit y of Vaccine Nasal 00:00:00 [place] [facility] TDAP (ADACEL) VACCINE 2013-08-25 Completed Uni versity of 00:00:00 [facility] Meningococcal 2013-08-25 Completed University of Polysaccharide 00:00:00 [place] [facility] (groups A, C, Y and Branc h W-135) conjugate vaccine (MCV4P) HPV 2013-08-25 Completed University of 00:00:00 [facility] Influenza Virus 2013-08-25 Completed Universit y of Vaccine Nasal 00:00:00 [facility] Branch TDAP (ADACEL) VACCINE 2013-08-25 Completed Uni versity of 00:00:00 [facility] Meningococcal 2013-08-25 Completed University of Polysaccharide 00:00:00 [place] [facility] (groups A, C, Y and Branc h W-135) conjugate vaccine (MCV4P) HPV 2013-08-25 Completed University of 00:00:00 [facility] Influenza Virus 2013-08-25 Completed Universit y of Vaccine Nasal 00:00:00 [facility] Branch TDAP (ADACEL) VACCINE 2013-08-25 Completed Uni versity of 00:00:00 [facility] Meningococcal 2013-08-25 Completed University of Polysaccharide 00:00:00 [place] [facility] (groups A, C, Y and Branc h W-135) conjugate vaccine (MCV4P) HPV 2013-08-25 Completed University of 00:00:00 [facility] Influenza Virus 2013-08-25 Completed Universit y of Vaccine Nasal 00:00:00 [facility] TDAP (ADACEL) VACCINE 2013-08-25 Completed Uni versity of 00:00:00 [facility] Meningococcal 2013-08-25 Completed University of Polysaccharide 00:00:00 [place] [facility] (groups A, C, Y and Branc h W-135) conjugate vaccine (MCV4P) HPV 2013-08-25 Completed University of 00:00:00 [facility] Influenza Virus 2013-08-25 Completed Universit y of Vaccine Nasal 00:00:00 [facility] Influenza Virus 2012-09-26 Completed Universit y of Vaccine 00:00:00 [facility] Influenza Virus 2012-09-26 Completed Universit y of Vaccine 00:00:00 [facility] Influenza Virus 2012-09-26 Completed Universit y of Vaccine 00:00:00 [facility] Influenza Virus 2012-09-26 Completed Universit y of Vaccine 00:00:00 [facility] Influenza Virus 2012-09-26 Completed Universit y of Vaccine 00:00:00 [facility] Influenza Virus 2012-09-26 Completed Universit y of Vaccine 00:00:00 [facility] Influenza Virus 2012-09-26 Completed Universit y of Vaccine 00:00:00 [facility] Influenza Virus 2012-09-26 Completed Universit y of Vaccine 00:00:00 [facility] Influenza Virus 2012-09-26 Completed Universit y of Vaccine 00:00:00 [facility] Influenza Virus 2012-09-26 Completed Universit y of Vaccine 00:00:00 [facility] Influenza Virus 2012-09-26 Completed Universit y of Vaccine 00:00:00 [facility] Influenza Virus 2012-09-26 Completed Universit y of Vaccine 00:00:00 [facility] Influenza Virus 2012-09-26 Completed Universit y of Vaccine 00:00:00 [facility] Influenza Virus 2012-09-26 Completed Universit y of Vaccine 00:00:00 [facility] Influenza Virus 2012-09-26 Completed Universit y of Vaccine 00:00:00 [facility] Influenza Virus 2012-09-26 Completed Universit y of Vaccine 00:00:00 [facility] Influenza Virus 2012-09-26 Completed Universit y of Vaccine 00:00:00 [facility] Influenza Virus 2012-09-26 Completed Universit y of Vaccine 00:00:00 [facility] HEPATITIS A 2011-03-10 Completed University of 00:00:00 [facility] HEPATITIS A 2011-03-10 Completed University of 00:00:00 [facility] HEPATITIS A 2011-03-10 Completed University of 00:00:00 [facility] HEPATITIS A 2011-03-10 Completed University of 00:00:00 [facility] HEPATITIS A 2011-03-10 Completed University of 00:00:00 [facility] HEPATITIS A 2011-03-10 Completed University of 00:00:00 [facility] HEPATITIS A 2011-03-10 Completed University of 00:00:00 [facility] HEPATITIS A 2011-03-10 Completed University of 00:00:00 [facility] HEPATITIS A 2011-03-10 Completed University of 00:00:00 [facility] HEPATITIS A 2011-03-10 Completed University of 00:00:00 [facility] HEPATITIS A 2011-03-10 Completed University of 00:00:00 [facility] HEPATITIS A 2011-03-10 Completed University of 00:00:00 [facility] HEPATITIS A 2011-03-10 Completed University of 00:00:00 [facility] HEPATITIS A 2011-03-10 Completed University of 00:00:00 [facility] HEPATITIS A 2011-03-10 Completed University of 00:00:00 [facility] HEPATITIS A 2011-03-10 Completed University of 00:00:00 [facility] HEPATITIS A 2011-03-10 Completed University of 00:00:00 [facility] HEPATITIS A 2011-03-10 Completed University of 00:00:00 [facility] DTAP 2008-03-17 Completed University of 00:00:00 [facility] HEPATITIS A 2008-03-17 Completed University of 00:00:00 [facility] MMR 2008-03-17 Completed [facility] 00:00:00 [facility] [facility] Polio (IPV/OPV) 2008-03-17 Completed [facility] 00:00:00 [facility] Varicella 2008-03-17 Completed [facility] of (varivax)(chicken 00:00:00 [place] [facility] pox) [facility] DTAP 2008-03-17 Completed [facility] of 00:00:00 [facility] HEPATITIS A 2008-03-17 Completed [facility] of 00:00:00 [facility] MMR 2008-03-17 Completed [facility] of 00:00:00 [facility] Polio (IPV/OPV) 2008-03-17 Completed [facility] 00:00:00 [facility] Varicella 2008-03-17 Completed [facility] (varivax)(chicken 00:00:00 [place] [facility] pox) [facility] DTAP 2008-03-17 Completed [facility] of 00:00:00 [facility] HEPATITIS A 2008-03-17 Completed [facility] of 00:00:00 [facility] MMR 2008-03-17 Completed [facility] of 00:00:00 [facility] Polio (IPV/OPV) 2008-03-17 Completed [facility] 00:00:00 [facility] Varicella 2008-03-17 Completed [facility] (varivax)(chicken 00:00:00 [place] [facility] pox) [facility] DTAP 2008-03-17 Completed [facility] 00:00:00 [facility] HEPATITIS A 2008-03-17 Completed [facility] of 00:00:00 [facility] MMR 2008-03-17 Completed [facility] of 00:00:00 [facility] Polio (IPV/OPV) 2008-03-17 Completed [facility] 00:00:00 [facility] Varicella 2008-03-17 Completed [facility] (varivax)(chicken 00:00:00 [place] [facility] pox) [facility] DTAP 2008-03-17 Completed [facility] 00:00:00 [facility] HEPATITIS A 2008-03-17 Completed [facility] of 00:00:00 [facility] MMR 2008-03-17 Completed [facility] of 00:00:00 [facility] Polio (IPV/OPV) 2008-03-17 Completed [facility] 00:00:00 [facility] Varicella 2008-03-17 Completed [facility] (varivax)(chicken 00:00:00 [place] [facility] pox) [facility] DTAP 2008-03-17 Completed [facility] of 00:00:00 [facility] HEPATITIS A 2008-03-17 Completed [facility] of 00:00:00 [facility] MMR 2008-03-17 Completed [facility] of 00:00:00 [facility] Polio (IPV/OPV) 2008-03-17 Completed [facility] 00:00:00 [facility] Varicella 2008-03-17 Completed [facility] (varivax)(chicken 00:00:00 [place] [facility] pox) [facility] DTAP 2008-03-17 Completed [facility] 00:00:00 [facility] HEPATITIS A 2008-03-17 Completed [facility] of 00:00:00 [facility] MMR 2008-03-17 Completed [facility] of 00:00:00 [facility] Polio (IPV/OPV) 2008-03-17 Completed [facility] 00:00:00 [facility] Varicella 2008-03-17 Completed [facility] (varivax)(chicken 00:00:00 [place] [facility] pox) Branch DTAP 2008-03-17 Completed [facility] of 00:00:00 [facility] HEPATITIS A 2008-03-17 Completed [facility] of 00:00:00 [facility] MMR 2008-03-17 Completed [facility] of 00:00:00 [facility] Polio (IPV/OPV) 2008-03-17 Completed [facility] 00:00:00 [facility] Varicella 2008-03-17 Completed [facility] (varivax)(chicken 00:00:00 [place] [facility] pox) [facility] DTAP 2008-03-17 Completed [facility] 00:00:00 [facility] HEPATITIS A 2008-03-17 Completed [facility] of 00:00:00 [facility] MMR 2008-03-17 Completed [facility] of 00:00:00 [facility] Polio (IPV/OPV) 2008-03-17 Completed [facility] 00:00:00 [facility] Varicella 2008-03-17 Completed [facility] (varivax)(chicken 00:00:00 [place] [facility] pox) [facility] DTAP 2008-03-17 Completed [facility] of 00:00:00 [facility] HEPATITIS A 2008-03-17 Completed [facility] of 00:00:00 [facility] MMR 2008-03-17 Completed [facility] of 00:00:00 [facility] Polio (IPV/OPV) 2008-03-17 Completed [facility] 00:00:00 [facility] Varicella 2008-03-17 Completed [facility] (varivax)(chicken 00:00:00 [place] [facility] pox) Branch DTAP 2008-03-17 Completed [facility] of 00:00:00 [facility] HEPATITIS A 2008-03-17 Completed [facility] of 00:00:00 [facility] MMR 2008-03-17 Completed [facility] of 00:00:00 [facility] Polio (IPV/OPV) 2008-03-17 Completed [facility] 00:00:00 [facility] Varicella 2008-03-17 Completed [facility] of (varivax)(chicken 00:00:00 [place] [facility] pox) [facility] DTAP 2008-03-17 Completed [facility] of 00:00:00 [facility] HEPATITIS A 2008-03-17 Completed [facility] of 00:00:00 [facility] MMR 2008-03-17 Completed [facility] of 00:00:00 [facility] Polio (IPV/OPV) 2008-03-17 Completed [facility] 00:00:00 [facility] Varicella 2008-03-17 Completed [facility] (varivax)(chicken 00:00:00 [place] [facility] pox) [facility] DTAP 2008-03-17 Completed [facility] of 00:00:00 [facility] HEPATITIS A 2008-03-17 Completed [facility] of 00:00:00 [facility] MMR 2008-03-17 Completed [facility] of 00:00:00 [facility] Polio (IPV/OPV) 2008-03-17 Completed [facility] 00:00:00 [facility] Varicella 2008-03-17 Completed [facility] of (varivax)(chicken 00:00:00 [place] [facility] pox) Branch DTAP 2008-03-17 Completed [facility] of 00:00:00 [facility] HEPATITIS A 2008-03-17 Completed [facility] of 00:00:00 [facility] MMR 2008-03-17 Completed [facility] of 00:00:00 [facility] Polio (IPV/OPV) 2008-03-17 Completed [facility] 00:00:00 [facility] Varicella 2008-03-17 Completed [facility] (varivax)(chicken 00:00:00 [place] [facility] pox) [facility] DTAP 2008-03-17 Completed [facility] of 00:00:00 [facility] HEPATITIS A 2008-03-17 Completed [facility] of 00:00:00 [facility] MMR 2008-03-17 Completed [facility] of 00:00:00 [facility] Polio (IPV/OPV) 2008-03-17 Completed [facility] 00:00:00 [facility] Varicella 2008-03-17 Completed [facility] of (varivax)(chicken 00:00:00 [place] [facility] pox) Branch DTAP 2008-03-17 Completed [facility] of 00:00:00 [facility] HEPATITIS A 2008-03-17 Completed [facility] of 00:00:00 [facility] MMR 2008-03-17 Completed [facility] of 00:00:00 [facility] Polio (IPV/OPV) 2008-03-17 Completed [facility] 00:00:00 [facility] Varicella 2008-03-17 Completed [facility] (varivax)(chicken 00:00:00 [place] [facility] pox) Branch DTAP 2008-03-17 Completed [facility] of 00:00:00 [facility] HEPATITIS A 2008-03-17 Completed [facility] of 00:00:00 [facility] MMR 2008-03-17 Completed [facility] of 00:00:00 [facility] Polio (IPV/OPV) 2008-03-17 Completed [facility] 00:00:00 [facility] Varicella 2008-03-17 Completed [facility] of (varivax)(chicken 00:00:00 [place] [facility] pox) Branch DTAP 2008-03-17 Completed [facility] of 00:00:00 [facility] HEPATITIS A 2008-03-17 Completed [facility] of 00:00:00 [facility] MMR 2008-03-17 Completed [facility] of 00:00:00 [facility] Polio (IPV/OPV) 2008-03-17 Completed [facility] 00:00:00 [facility] Varicella 2008-03-17 Completed [facility] of (varivax)(chicken 00:00:00 [place] [facility] pox) Branch DTAP 2004-02-09 Completed [facility] of 00:00:00 [facility] HIB 4 Dose Schedule 2004-02-09 Completed Unive rsity of 00:00:00 [facility] MMR 2004-02-09 Completed [facility] of 00:00:00 [facility] Varicella 2004-02-09 Completed [facility] (varivax)(chicken 00:00:00 [place] [facility] pox) [facility] DTAP 2004-02-09 Completed [facility] of 00:00:00 [facility] HIB 4 Dose Schedule 2004-02-09 Completed Unive rsity of 00:00:00 [facility] MMR 2004-02-09 Completed [facility] of 00:00:00 [facility] Varicella 2004-02-09 Completed [facility] (varivax)(chicken 00:00:00 [place] [facility] pox) Branch DTAP 2004-02-09 Completed [facility] of 00:00:00 [facility] HIB 4 Dose Schedule 2004-02-09 Completed Unive rsity of 00:00:00 [facility] MMR 2004-02-09 Completed [facility] of 00:00:00 [facility] Varicella 2004-02-09 Completed [facility] of (varivax)(chicken 00:00:00 [place] [facility] pox) Branch DTAP 2004-02-09 Completed [facility] of 00:00:00 [facility] HIB 4 Dose Schedule 2004-02-09 Completed Unive rsity of 00:00:00 [facility] MMR 2004-02-09 Completed [facility] of 00:00:00 [facility] Varicella 2004-02-09 Completed [facility] (varivax)(chicken 00:00:00 [place] [facility] pox) Branch DTAP 2004-02-09 Completed [facility] of 00:00:00 [facility] HIB 4 Dose Schedule 2004-02-09 Completed Unive rsity of 00:00:00 [facility] MMR 2004-02-09 Completed [facility] of 00:00:00 [facility] Varicella 2004-02-09 Completed [facility] (varivax)(chicken 00:00:00 [place] [facility] pox) Branch DTAP 2004-02-09 Completed [facility] of 00:00:00 [facility] HIB 4 Dose Schedule 2004-02-09 Completed Unive rsity of 00:00:00 [facility] MMR 2004-02-09 Completed [facility] of 00:00:00 [facility] Varicella 2004-02-09 Completed [facility] (varivax)(chicken 00:00:00 [place] [facility] pox) Branch DTAP 2004-02-09 Completed [facility] of 00:00:00 [facility] HIB 4 Dose Schedule 2004-02-09 Completed Unive rsity of 00:00:00 [facility] MMR 2004-02-09 Completed [facility] of 00:00:00 [facility] Varicella 2004-02-09 Completed [facility] of (varivax)(chicken 00:00:00 [place] [facility] pox) Branch HIB 4 Dose Schedule 2003-09-16 Completed Unive rsity of 00:00:00 [facility] HIB 4 Dose Schedule 2003-09-16 Completed Unive rsity of 00:00:00 [facility] HIB 4 Dose Schedule 2003-09-16 Completed Unive rsity of 00:00:00 [facility] HIB 4 Dose Schedule 2003-09-16 Completed Unive rsity of 00:00:00 [facility] HIB 4 Dose Schedule 2003-09-16 Completed Unive rsity of 00:00:00 [facility] HIB 4 Dose Schedule 2003-09-16 Completed Unive rsity of 00:00:00 [facility] HIB 4 Dose Schedule 2003-09-16 Completed Unive rsity of 00:00:00 [facility] DTAP 2003-04-22 Completed University of 00:00:00 [facility] HIB 4 Dose Schedule 2003-04-22 Completed Unive rsity of 00:00:00 [facility] Pneumococcal 7 2003-04-22 Completed University of Conjugate, PCV7 00:00:00 [place] [facility] (Prevnar7) Branch Polio (IPV/OPV) 2003-04-22 Completed [facility] 00:00:00 [facility] DTAP 2003-04-22 Completed [facility] of 00:00:00 [facility] HIB 4 Dose Schedule 2003-04-22 Completed Unive rsity of 00:00:00 [facility] Pneumococcal 7 2003-04-22 Completed [facility] of Conjugate, PCV7 00:00:00 [place] [facility] (Prevnar7) [facility] Polio (IPV/OPV) 2003-04-22 Completed [facility] 00:00:00 [facility] DTAP 2003-04-22 Completed [facility] of 00:00:00 [facility] HIB 4 Dose Schedule 2003-04-22 Completed Unive rsity of 00:00:00 [facility] Pneumococcal 7 2003-04-22 Completed [facility] of Conjugate, PCV7 00:00:00 [place] [facility] (Prevnar7) [facility] Polio (IPV/OPV) 2003-04-22 Completed [facility] 00:00:00 [facility] DTAP 2003-04-22 Completed [facility] of 00:00:00 [facility] HIB 4 Dose Schedule 2003-04-22 Completed Unive rsity of 00:00:00 [facility] Pneumococcal 7 2003-04-22 Completed [facility] of Conjugate, PCV7 00:00:00 [place] [facility] (Prevnar7) [facility] Polio (IPV/OPV) 2003-04-22 Completed [facility] 00:00:00 [facility] DTAP 2003-04-22 Completed [facility] of 00:00:00 [facility] HIB 4 Dose Schedule 2003-04-22 Completed Unive rsity of 00:00:00 [facility] Pneumococcal 7 2003-04-22 Completed University of Conjugate, PCV7 00:00:00 [place] [facility] (Prevnar7) Branch Polio (IPV/OPV) 2003-04-22 Completed [facility] 00:00:00 [facility] DTAP 2003-04-22 Completed [facility] of 00:00:00 [facility] HIB 4 Dose Schedule 2003-04-22 Completed Unive rsity of 00:00:00 [facility] Pneumococcal 7 2003-04-22 Completed [facility] of Conjugate, PCV7 00:00:00 [place] [facility] (Prevnar7) [facility] Polio (IPV/OPV) 2003-04-22 Completed [facility] 00:00:00 [facility] DTAP 2003-04-22 Completed University of 00:00:00 [facility] HIB 4 Dose Schedule 2003-04-22 Completed Unive rsity of 00:00:00 [facility] Pneumococcal 7 2003-04-22 Completed [facility] of Conjugate, PCV7 00:00:00 [place] [facility] (Prevnar7) [facility] Polio (IPV/OPV) 2003-04-22 Completed [facility] 00:00:00 [facility] Pneumococcal 7 2003-02-13 Completed [facility] of Conjugate, PCV7 00:00:00 [place] [facility] (Prevnar7) [facility] Pneumococcal 7 2003-02-13 Completed [facility] of Conjugate, PCV7 00:00:00 [place] [facility] (Prevnar7) [facility] Pneumococcal 7 2003-02-13 Completed [facility] of Conjugate, PCV7 00:00:00 [place] [facility] (Prevnar7) [facility] Pneumococcal 7 2003-02-13 Completed [facility] of Conjugate, PCV7 00:00:00 [place] [facility] (Prevnar7) [facility] Pneumococcal 7 2003-02-13 Completed [facility] of Conjugate, PCV7 00:00:00 [place] [facility] (Prevnar7) [facility] Pneumococcal 7 2003-02-13 Completed [facility] of Conjugate, PCV7 00:00:00 [place] [facility] (Prevnar7) [facility] Pneumococcal 7 2003-02-13 Completed [facility] of Conjugate, PCV7 00:00:00 [place] [facility] (Prevnar7) [facility] Pneumococcal 7 2003-02-13 Completed [facility] of Conjugate, PCV7 00:00:00 [place] [facility] (Prevnar7) [facility] Pneumococcal 7 2003-02-13 Completed [facility] of Conjugate, PCV7 00:00:00 [place] [facility] (Prevnar7) [facility] Pneumococcal 7 2003-02-13 Completed [facility] of Conjugate, PCV7 00:00:00 [place] [facility] (Prevnar7) [facility] Pneumococcal 7 2003-02-13 Completed [facility] of Conjugate, PCV7 00:00:00 [place] [facility] (Prevnar7) [facility] Pneumococcal 7 2003-02-13 Completed [facility] of Conjugate, PCV7 00:00:00 [place] [facility] (Prevnar7) [facility] Pneumococcal 7 2003-02-13 Completed [facility] of Conjugate, PCV7 00:00:00 [place] [facility] (Prevnar7) [facility] Pneumococcal 7 2003-02-13 Completed [facility] of Conjugate, PCV7 00:00:00 [place] [facility] (Prevnar7) [facility] Pneumococcal 7 2003-02-13 Completed [facility] of Conjugate, PCV7 00:00:00 [place] [facility] (Prevnar7) [facility] Pneumococcal 7 2003-02-13 Completed [facility] of Conjugate, PCV7 00:00:00 [place] [facility] (Prevnar7) [facility] Pneumococcal 7 2003-02-13 Completed [facility] of Conjugate, PCV7 00:00:00 [place] [facility] (Prevnar7) [facility] Pneumococcal 7 2003-02-13 Completed [facility] of Conjugate, PCV7 00:00:00 [place] [facility] (Prevnar7) [facility] DTAP 2003-02-06 Completed [facility] of 00:00:00 [facility] Hep B, Adol or Pedi 2003-02-06 Completed Unive rsity of Dosage 00:00:00 [facility] HIB 4 Dose Schedule 2003-02-06 Completed Unive rsity of 00:00:00 [facility] Polio (IPV/OPV) 2003-02-06 Completed [facility] 00:00:00 [facility] Pneumococcal 7 2003-02-06 Completed University of Conjugate, PCV7 00:00:00 [place] [facility] (Prevnar7) Branch DTAP 2003-02-06 Completed [facility] of 00:00:00 [facility] Hep B, Adol or Pedi 2003-02-06 Completed Unive rsity of Dosage 00:00:00 [facility] HIB 4 Dose Schedule 2003-02-06 Completed Unive rsity of 00:00:00 [facility] Polio (IPV/OPV) 2003-02-06 Completed [facility] 00:00:00 [facility] Pneumococcal 7 2003-02-06 Completed University of Conjugate, PCV7 00:00:00 [place] [facility] (Prevnar7) Branch DTAP 2003-02-06 Completed [facility] 00:00:00 [facility] Hep B, Adol or Pedi 2003-02-06 Completed Unive rsity of Dosage 00:00:00 [facility] HIB 4 Dose Schedule 2003-02-06 Completed Unive rsity of 00:00:00 [facility] Polio (IPV/OPV) 2003-02-06 Completed [facility] 00:00:00 [facility] Pneumococcal 7 2003-02-06 Completed University of Conjugate, PCV7 00:00:00 [place] [facility] (Prevnar7) Branch DTAP 2003-02-06 Completed [facility] 00:00:00 [facility] Hep B, Adol or Pedi 2003-02-06 Completed Unive rsity of Dosage 00:00:00 [facility] HIB 4 Dose Schedule 2003-02-06 Completed Unive rsity of 00:00:00 [facility] Polio (IPV/OPV) 2003-02-06 Completed [facility] 00:00:00 [facility] Pneumococcal 7 2003-02-06 Completed University of Conjugate, PCV7 00:00:00 [place] [facility] (Prevnar7) Branch DTAP 2003-02-06 Completed [facility] of 00:00:00 [facility] Hep B, Adol or Pedi 2003-02-06 Completed Unive rsity of Dosage 00:00:00 [facility] HIB 4 Dose Schedule 2003-02-06 Completed Unive rsity of 00:00:00 [facility] Polio (IPV/OPV) 2003-02-06 Completed [facility] 00:00:00 [facility] Pneumococcal 7 2003-02-06 Completed University of Conjugate, PCV7 00:00:00 [place] [facility] (Prevnar7) [facility] DTAP 2003-02-06 Completed [facility] 00:00:00 [facility] Hep B, Adol or Pedi 2003-02-06 Completed Unive rsity of Dosage 00:00:00 [facility] HIB 4 Dose Schedule 2003-02-06 Completed Unive rsity of 00:00:00 [facility] Polio (IPV/OPV) 2003-02-06 Completed [facility] 00:00:00 [facility] Pneumococcal 7 2003-02-06 Completed University of Conjugate, PCV7 00:00:00 [place] [facility] (Prevnar7) Branch DTAP 2003-02-06 Completed [facility] 00:00:00 [facility] Hep B, Adol or Pedi 2003-02-06 Completed Unive rsity of Dosage 00:00:00 [facility] HIB 4 Dose Schedule 2003-02-06 Completed Unive rsity of 00:00:00 [facility] Polio (IPV/OPV) 2003-02-06 Completed [facility] 00:00:00 [facility] Pneumococcal 7 2003-02-06 Completed [facility] of Conjugate, PCV7 00:00:00 [place] [facility] (Prevnar7) Branch DTAP 2002 Completed [facility] 00:00:00 [facility] HIB 4 Dose Schedule 2002 Completed Unive rsity of 00:00:00 [facility] Pneumococcal 7 2002 Completed University of Conjugate, PCV7 00:00:00 [place] [facility] (Prevnar7) [facility] Polio (IPV/OPV) 2002 Completed [facility] 00:00:00 [facility] Hep B, Adol or Pedi 2002 Completed Unive rsity of Dosage 00:00:00 [facility] DTAP 2002 Completed [facility] of 00:00:00 [facility] HIB 4 Dose Schedule 2002 Completed Unive rsity of 00:00:00 [facility] Pneumococcal 7 2002 Completed [facility] of Conjugate, PCV7 00:00:00 [place] [facility] (Prevnar7) [facility] Polio (IPV/OPV) 2002 Completed [facility] 00:00:00 [facility] Hep B, Adol or Pedi 2002 Completed Unive rsity of Dosage 00:00:00 [facility] DTAP 2002 Completed [facility] of 00:00:00 [facility] HIB 4 Dose Schedule 2002 Completed Unive rsity of 00:00:00 [facility] Pneumococcal 7 2002 Completed [facility] of Conjugate, PCV7 00:00:00 [place] [facility] (Prevnar7) [facility] Polio (IPV/OPV) 2002 Completed [facility] 00:00:00 [facility] Hep B, Adol or Pedi 2002 Completed Unive rsity of Dosage 00:00:00 [facility] DTAP 2002 Completed [facility] of 00:00:00 [facility] HIB 4 Dose Schedule 2002 Completed Unive rsity of 00:00:00 [facility] Pneumococcal 7 2002 Completed [facility] of Conjugate, PCV7 00:00:00 [place] [facility] (Prevnar7) Branch Polio (IPV/OPV) 2002 Completed [facility] 00:00:00 [facility] Hep B, Adol or Pedi 2002 Completed Unive rsity of Dosage 00:00:00 [facility] DTAP 2002 Completed [facility] of 00:00:00 [facility] HIB 4 Dose Schedule 2002 Completed Unive rsity of 00:00:00 [facility] Pneumococcal 7 2002 Completed [facility] of Conjugate, PCV7 00:00:00 [place] [facility] (Prevnar7) Branch Polio (IPV/OPV) 2002 Completed [facility] 00:00:00 [facility] Hep B, Adol or Pedi 2002 Completed Unive rsity of Dosage 00:00:00 [facility] DTAP 2002 Completed [facility] [facility] HIB 4 Dose Schedule 2002 Completed Unive rsity of 00:00:00 [facility] Pneumococcal 7 2002 Completed University of Conjugate, PCV7 00:00:00 [place] [facility] (Prevnar7) Branch Polio (IPV/OPV) 2002 Completed Universit y of 00:00:00 [facility] Hep B, Adol or Pedi 2002 Completed Unive rsity of Dosage 00:00:00 [facility] DTAP 2002 Completed University of 00:00:00 [facility] HIB 4 Dose Schedule 2002 Completed Unive rsity of 00:00:00 [facility] Pneumococcal 7 2002 Completed University of Conjugate, PCV7 00:00:00 [place] [facility] (Prevnar7) Branch Polio (IPV/OPV) 2002 Completed Universit y of 00:00:00 [facility] Hep B, Adol or Pedi 2002 Completed Unive rsity of Dosage 00:00:00 [facility] Hep B, Adol or Pedi 2002 Completed Unive rsity of Dosage 00:00:00 [facility] Hep B, Adol or Pedi 2002 Completed Unive rsity of Dosage 00:00:00 [facility] Hep B, Adol or Pedi 2002 Completed Unive rsity of Dosage 00:00:00 [facility] Hep B, Adol or Pedi 2002 Completed Unive rsity of Dosage 00:00:00 [facility] Hep B, Adol or Pedi 2002 Completed Unive rsity of Dosage 00:00:00 [facility] Hep B, Adol or Pedi 2002 Completed Unive rsity of Dosage 00:00:00 [facility] Hep B, Adol or Pedi 2002 Completed Unive rsity of Dosage 00:00:00 [facility] Vital Signs Vital Name Observation Time Observation Value Comments Source Systolic blood 2022-11-17 00:13:00 109 mm[Hg] Univer sity of pressure [facility] Diastolic blood 2022-11-17 00:13:00 72 mm[Hg] Unive rsity of pressure [facility] Heart rate 2022-11-17 00:13:00 102 /min [facility] Body temperature 2022-11-17 00:13:00 36.89 Gela [facility] Res[facility] rate 2022-11-17 00:13:00 20 /min [facility] Body height 2022-11-17 00:13:00 160 cm Universi ty [facility] [place] [facility] Body weight 2022-11-17 00:13:00 64.411 kg [facility]i [facility] [place] [facility] BMI 2022-11-17 00:13:00 25.15 kg/m2 [facility] [place] [facility] Oxygen saturation in 2022-11-17 00:13:00 98 /min University of Arterial blood by [facility] Pulse oximetry Branch Systolic blood 2022-10-27 14:14:00 123 mm[Hg] Univer sity of pressure [place] [facility] Diastolic blood 2022-10-27 14:14:00 74 mm[Hg] Unive rsity of pressure [place] [facility] Heart rate 2022-10-27 14:14:00 93 /min [facility] [place] [facility] Body temperature 2022-10-27 14:14:00 36.83 Gela Univ ersity of [place] [facility] Respiratory rate 2022-10-27 14:14:00 18 /min Univ ersity of [place] [facility] Body height 2022-10-27 14:14:00 160 cm [facility] [place] [facility] Body weight 2022-10-27 14:14:00 62.732 kg [facility] [place] [facility] BMI 2022-10-27 14:14:00 24.50 kg/m2 [facility] [place] [facility] Systolic blood 2022-07-03 21:37:00 119 mm[Hg] Univer sity of pressure [place] [facility] Diastolic blood 2022-07-03 21:37:00 76 mm[Hg] Unive rsity of pressure [facility] Heart rate 2022-07-03 21:37:00 87 /min [facility] [place] [facility] Body temperature 2022-07-03 21:37:00 36.78 Gela Univ ersity of [place] [facility] Respiratory rate 2022-07-03 21:37:00 20 /min Univ ersity of [place] [facility] Body height 2022-07-03 21:37:00 160 cm [facility] [place] [facility] Body weight 2022-07-03 21:37:00 54.432 kg [facility] [place] [facility] BMI 2022-07-03 21:37:00 21.26 kg/m2 [facility] [place] [facility] Oxygen saturation in 2022-07-03 21:37:00 100 /min University of Arterial blood by [facility] Pulse oximetry Branch Systolic blood 2021-12-07 18:45:00 121 mm[Hg] Univer sity of pressure [facility] Diastolic blood 2021-12-07 18:45:00 80 mm[Hg] Unive rsity of pressure [facility] Heart rate 2021-12-07 18:45:00 81 /min [facility] Body temperature 2021-12-07 18:45:00 36.94 Gela [facility] Respiratory rate 2021-12-07 18:45:00 18 /min [facility] Body height 2021-12-07 18:45:[address] [facility] Body weight 2021-12-07 18:45:[address] [facility] BMI 2021-12-07 18:45:00 21.95 kg/m2 [facility] Body mass index 2021-12-07 18:45:00 54.05 % Unive rsity of (BMI) [Percentile] [facility] ica Per age and sex Branch Oxygen saturation in 2021-12-07 18:45:00 99 /min University of Arterial blood by [facility] Pulse oximetry Branch Procedures Procedure Date / Time Performed Performing Clinician Dafne roman [id number] 2023-04-27 00:00:00 VERONICA GERBER [facility] [id number] 2023-04-27 00:00:00 VERONICA GERBER [facility] POCT MOLECULAR STREP 2022-11-17 00:09:00 Unknown, Attending [facility] PATIENT QUESTIONNAIRE 2022-10-27 06:01:00 Doctor Unassigned, No General acute hospital Branch [id number] 2020-07-27 00:00:00 VERONICA GERBER [facility] Plan of Care Planned Activity Planned Date Details Comments Source Future Scheduled 2023-04-24 [facility]FL[facility]ENZA VACCINE [facility] Test 02:04:12 (#1) [code = INFLUENZA VACCINE (#1)] Future Scheduled 2023-04-24 COVID-19 VACCINE (#1) [facility] Test 02:04:12 [code = COVID-19 VACCINE (#1)] Future Scheduled 2023-04-24 [facility] Test 02:04:12 Chlamydia trachomatis (procedure) [code = 141639048] Future Scheduled 2023-04-24 [facility] Test 02:04:12 Chlamydia trachomatis (procedure) [code = 514585975] Future Scheduled 2023-04-24 [facility]ZA VACCINE [facility] Test 02:04:12 (#1) [code = INFLUENZA VACCINE (#1)] Future Scheduled 2023-04-24 COVID[facility]19 [facility] Test 02:04:12 [code = COVID-19 VACCINE (#1)] Future Scheduled 2023-02-02 COVID-19 [facility]ACCINE (#[facility]) [facility] Test 20:26:05 [code = COVID-19 VACCINE (#1)] Future Scheduled 2023-02-02 [facility] Test 20:26:05 Chlamydia trachomatis (procedure) [code = 963793537] Future Scheduled 2023-02-02 INFLUENZA VACCINE [facility] Test 20:26:05 [code = INFLUENZA VACCINE] Future Scheduled 2022-05-07 HEPATITIS B [facility]ACCINES [facility] Test 22:15:41 (1 of 3 - 3-dose series) [code = HEPATITIS B VACCINES (1 of 3 - 3-dose series)] Future Scheduled 2022-05-07 COVID-19 VACCINE (#1) [facility] Test 22:15:41 [code = COVID-19 VACCINE (#1)] Future Scheduled 2022-05-07 [facility] Test 22:15:41 Chlamydia trachomatis (procedure) [code = 258350445] Future Scheduled 2022-05-07 INFLUENZA VACCINE [facility] Test 22:15:41 [code = INFLUENZA VACCINE] Encounters Start End Encounter Admission Attending Care Care Encounter Source Date/Time Date/Time Type Type Clinicians Facility Department ID 2021-06-16 Emergency [facility] [id number] Univers 17:02:40 ity of [facility] 2023-04-26 2023-04-28 Inpatient IHEU Oleaalejandro, DANA OBPP [id number] [facility] 16:37:00 16:58:00 Edesiri 43 [facility] 2023-02-21 2023-02-21 Emergency ALFRED Gibbs, DANA GLADIS [id number] [facility] 17:02:00 19:47:00 Codie 08 [facility] 2022-12-28 2022-12-28 Outpatient R PILI [facility] [id number] Univers 08:00:00 08:00:00 RUIQING ity [facility] 2022-11-16 2022-11-16 Outpatient R AMY [facility] [id number] Univers 19:00:00 19:21:48 TALI ity [facility] 2022-11-16 2022-11-16 Urgent Tali Reyes [id number] Univers 19:00:00 19:21:48 Care Unknown, Attending PEDIATRIC 350.1.13. 10 [place] [id number] [place] [address] Branch [facility] 2022-10-30 2022-10-30 [facility] [id number] Univers 13:00:00 13:15:00 Visit Raeann Alejandre SPECIALTY 350.1.13.10 it[place] [id number] Ma vangie AGUILAR 353 [facility] 2022-10-30 2022-10-30 Outpatient R PILI [facility] [id number] Univers 13:00:00 13:00:00 RUIQING ity [facility] 2022-10-27 2022-10-27 Outpatient R PILI [facility] [id number] Univers 08:00:00 08:52:45 RUIQING ity [facility] 2022-10-27 2022-10-27 Office PiliRUST 1.2.840.114 [id number] Univers 08:00:00 08:52:45 Visit Ruiqing L SPECIALTY 350.1.13.10 it[place] [id number] Ma vangie AGUILAR 092 [facility] 2022-10-27 2022-10-27 Orders Doctor CEJA 1.2.840.114 [id number] Univers 00:00:00 00:00:00 Only Unassigned, DARIUS 350.1.13.10 ity of [place] [facility] 4.2.7.2.686 [place] [id number] [address] 2022-10-26 2022-10-26 Telephone Pili [facility] [id number] Univers 00:00:00 00:00:00 Ruiqing L SPECIALTY 350.1.13.10 ity of CARE 4.2.7.2.686 [facility] AT [phone] Ma vangie AGUILAR [address] [place] [address] 2022-09-08 2022-09-08 Telephone PiliRUST [id number] Univers 00:00:00 00:00:00 Ruiqing L SPECIALTY 350.1.13.10 ity of [facility] 4.2.7.2.686 [facility] CENTER AT [phone] Ma vangie AGUILAR [address] [place] [address] 2022-09-07 2022-09-07 Outpatient Maye ALEJANDRE [facility] [id number] Univers 11:00:00 11:00:00 RAEANN ity [facility] 2022-07-03 2022-07-03 Emergency [facility] [id number] Univers 15:38:00 16:44:00 BRYN ity [facility] 2022-07-03 2022-07-03 [facility] [id number] Univers 15:38:00 16:44:00 [facility] 350.1.13.10 it y of César BOB 4.2.7.2.686 [facility] [phone] [address] ([facility]) 2022-07-03 2022-07-03 Outpatient Maye BELL [facility] [id number] Univers 15:00:00 15:00:00 MERCEDES itgisselle [facility] 2022-07-03 2022-07-03 Telephone WillianRUST [id number] Univers 00:00:00 00:00:00 Adam SPECIALTY 350.1.13.10 [place] [id number] [address] 2022-05-07 2022-05-07 Emergency EM Bob, [facility] MAYA [id number] [facility] 22:05:00 23:05:00 Gregor Morgan [facility] 2022-05-07 2022-05-07 Outpatient R YURI [facility] [id number] Univers 20:00:00 20:00:00 ATTENDING ity of [facility] 2022-02-21 2022-02-21 Wan Sage [facility] 1.2.840.114 [id number] Univers 00:00:00 00:00:00 Princess J SPECIALTY 350.1.13.10 ity of [place] [id number] [address] 2022-01-30 2022-01-30 Telephone WillianRUST [id number] [id number] Univers 00:00:00 00:00:00 Adam SPECIALTY 350.1.13.10 ity of [place] [id number] [address] 2022-01-29 2022-01-29 Wan Owen [facility] 1.2.840.114 [id number] Univers 00:00:00 00:00:00 SPECIALTY 350.1.13.10 it[place] of [place] 4[place] [id number] [address] 2021-12-07 2021-12-07 Office Willian [facility] 1.2.840.114 [id number] Univers 13:20:00 13:40:00 Visit Adam SPECIALTY 350.1.13.10 ity of [place] 4.2.7.2.[place] [id number] [address] 2021-12-07 2021-12-07 Outpatient R ADAM CHRISTIAN [facility] 1 [id number] Univers 13:20:00 13:20:00 ADAM CHRISTIAN itgisselle of [facility] 2021-12-07 2021-12-07 Orders Doctor CEJA 1.2.840.114 [id number] Univers 00:00:00 00:00:00 Only Unassigned, DARIUS 350.1.13.10 ity of [place] [facility] 4.2.7.2.686 [place] as [phone] [facility] 009 Branch 2021-12-04 2021-12-04 Emergency EM Berny, HCACL AERS [id number] [facility] 13:28:00 15:45:00 Oluwadolapo 18 Cl [facility] 2021-11-18 2021-11-18 Refill PatienceRUST 1.2.840.114 [id number] Univers 00:00:00 00:00:00 SPECIALTY 350.1.13.10 ity [place] [address]..[place] [id number] [facility] [address] 2021-08-03 2021-08-03 [facility] [id number] Univers 10:00:00 10:00:00 HANSA castellano [facility] 2021-03-17 2021-03-17 [facility] [id number] Univers 08:30:00 08:30:00 PAMELA castellano [facility] 2021-03-10 2021-03-10 [facility] [id number] Univers 00:00:00 00:00:00 J SPECIALTY 350.1.13.10 it[place] of [place].7.2.[place] [id number] [address] 2020-10-14 2020-10-14 Telephone [facility] 1.2.279.471 [id number] Univers 00:00:00 00:00:00 J SPECIALTY 350.1.13.10 it[place] of [place] [id number] [address] 2020-07-27 2020-07-31 Inpatient Trinh, HCACL GLADIS [id number] [facility] 05:38:00 05:20:20 Geffrey 26 [facility] 2020-03-26 2020-03-26 Telephone PatienceRUST [id number] Univers 00:00:00 00:00:00 J SPECIALTY 350.1.13.10 ity of [place] 4.2.7.2.686 [facility] [id number] [facility] [address] 2020-03-26 2020-03-26 Telephone Patience [facility] [id number] 00:00:00 00:00:00 J SPECIALTY 350.1.13.10 [place] 4.2.7.2.686 [place] [id number] [facility] 2019-11-25 2019-11-25 [facility] SIMA De Oliveira 1.2.840.114 [id number] Univers 15:24:00 23:59:[address] [facility] 350.1.13.10 ity 4.2.7.2.686 [facility] [id number] [place] [address] [place] 2019-11-25 2019-11-25 [facility] SIMA De Oliveira 1.2.840.114 [id number] 15:24:00 23:59:[address] [facility] 350.1.13.10 4.2.7.2.68 [id number] [facility] 2019-11-25 2019-11-25 Outpatient R MARCINRUST ANC [id number] Univers 00:00:00 00:00:00 TONI castellano [facility] 2019-11-25 2019-11-25 Patient AlekRUST 1.2.840.114 [id number] Univers 00:00:00 00:00:00 Outreach Aydee Terence HEALTH 350.1.13.10 i ty [facility] 4.2.7.2.686 [facility] [id number] [facility] Primary & 230 Branch Specialty Care 2019-11-25 2019-11-25 Patient AlekRUST 1.2.840.114 [id number] 00:00:00 00:00:00 Outreach Aydee L HEALTH 350.1.13.10 [place] 4.2.7.2.686 [facility] [id number] Primary & 230 Specialty Care 2019-11-24 2019-11-24 Telephone NenoRUST [id number] Univers 00:00:00 00:00:00 [facility] 350.1.13.10 it y of [place] 4.2.7.2.686 [facility] [id number] [facility] Primary & 230 Branch Specialty Care 2019-11-24 2019-11-24 Telephone PatienceRUST 1.2.480.910 [id number] Univers 00:00:00 00:00:00 Pamela Elizondo SPECIALTY 350.1.13.10 ity of [place] [id number] [facility] 168 Branch 2019-11-24 2019-11-24 Telephone [facility] 1.2.994.912 [id number] 00:00:00 00:00:00 J SPECIALTY 350.1.13.10 [place] 4.2.7.2.686 [place] [id number] 168 2019-11-23 2019-11-23 Emergency JaneHelen [facility] [id number] Univers 09:33:01 11:40:00 Maykel [place] 350.1.13.10 ity of [place] 4.2.7.2.686 [facility] [id number] [facility] 084 Branch 2019-11-23 2019-11-23 Nurse BRENNA Gonzalez 1.2.840.114 [id number] Univers 00:00:00 00:00:00 Triage Linn MCCOY 350.1.13.10 it y of [facility] 4.2.7.2.686 [place] [id number] [facility] 019 Branch 2019-10-15 2019-10-15 Telephone Matilde Hendrickson [facility] 1.2.840.114 [id number] Univers 00:00:00 00:00:00 M SPECIALTY 350.1.13.10 ity of [place] [id number] [facility] 152 Branch 2019-10-06 2019-10-06 Office [facility] 1.2.840.114 [id number] Univers 10:08:33 10:38:33 Visit Pamela Elizondo SPECIALTY 350.1.13.10 ity of [place] 4.[place].2.[place] [id number] [facility] 168 Branch 2019-10-01 2019-10-01 Emergency [facility] 1.2.305.136 [id number] Univers 10:45:51 14:09:00 Ebony Presley 350.1.13.10 i ty of [place] 4.2.7.2.686 [facility] [id number] [address] 2019-10-01 2019-10-01 Emergency X ALENARUST ERT [id number] Univers 10:45:51 14:09:00 EBONY ity [facility] 2019-09-23 2019-09-23 Urgent Mo Lauraemily Quick 1.2.840.114 [id number] Univers 20:34:53 21:47:51 Care Unknown, Attending Pediatric 350.1.13. 10 ity of s [facility] 4.2.7.2.[place] [id number] [address] [facility] 2019-09-23 2019-09-23 Orders Doctor BRENNA 1.2.840.114 [id number] Univers 00:00:00 00:00:00 Only Unassigned, DARIUS 350.1.13.10 ity of [place] [facility] 4.2.7.2.686 [place] [id number] [facility] 009 Branch 2019-09-06 2019-09-06 Emergency BishopRUST 1.2.238.096 [id number] Univers 12:05:27 14:42:00 Ariana Presley 350.1.13.10 i ty of [place] 4.2.7.2.686 [facility] [id number] [address] Results Test Description Test Time Test Comments Results Result Comments Source CBC W/AUTO DIFF 2023-04-28 08:08:00 Test Item Value Reference Range Interpretation Comme nts WHITE BLOOD CELL (test code = WBC) 11.8 x10 3/uL 4.5-11.0 H RED BLOOD CELL (test code = RBC) 3.65 x10 6/uL 3.54-5.02 N HEMOGLOBIN (test code = HGB) 10.0 g/dL 11.0-15.0 L HEMATOCRIT (test code = HCT) 31.5 % 33.0-45.0 L MEAN CELL VOLUME (test code = MCV) 86.3 fL 81.0-99.0 N MEAN CELL HGB (test code = MCH) 27.4 pg 27.0-33.0 N MEAN CELL HGB CONCETRATION (test code = MCHC) 31.7 g/dL 33.0-37. 0 L RED CELL DISTRIBUTION WIDTH CV (test code = RDW) 12.7 % 11.5- 14.5 N RED CELL DISTRIBUTION WIDTH SD (test code = RDW-SD) 39.7 fL 37 .0-54.0 N PLATELET COUNT (test code = PLT) 178 x10 3/uL 150-400 N MEAN PLATELET VOLUME (test code = MPV) 11.8 fL 7.0-9.0 H NEUTROPHIL % (test code = NT%) 68.3 % 56.0-77.0 N IMMATURE GRANULOCYTE % (test code = IG%) 0.8 % 0.0-2.0 N LYMPHOCYTE % (test code = LY%) 19.5 % 14.0-32.0 N MONOCYTE % (test code = MO%) 9.7 % 4.8-9.0 H EOSINOPHIL % (test code = EO%) 1.4 % 0.3-3.7 N BASOPHIL % (test code = BA%) 0.3 % 0.0-2.0 N NUCLEATED RBC % (test code = NRBC%) 0.0 % 0-0 N NEUTROPHIL # (test code = NT#) 8.05 x10 3/uL 2.0-7.6 H IMMATURE GRANULOCYTE # (test code = IG#) 0.10 x10 3/uL 0.00-0.03 H LYMPHOCYTE # (test code = LY#) 2.30 x10 3/uL 1.0-3.8 N MONOCYTE # (test code = MO#) 1.15 x10 3/uL 0.1-0.8 H EOSINOPHIL # (test code = EO#) 0.16 x10 3/uL 0.0-0.2 N BASOPHIL # (test code = BA#) 0.04 x10 3/uL 0.0-0.2 N NUCLEATED RBC # (test code = NRBC#) 0.00 x10 3/uL 0.0-0.1 N MANUAL DIFF REQUIRED (test code = MDIFF) NO RAPID PLASMA [id number] 11:26:00 Test Item Value Reference Range Interpretation Comments RAPID PLASMA REAGIN (test code = NONREACTIVE NONREACTIVE RPR) AG HEPATITIS B [id number] 11:26:00 Test Item Value Reference Range Interpretation Comments AG HEPATITIS B SURFACE NON REACTIVE INDEX NonReactive (test code = HBSAG) AB HIV 1 11:26:00 Test Item Value Reference Range Interpretation Comments AB HIV 1 2 (test code = [id number]) Nonreactive Nonreactive CBC W/AUTO [id number] 12:09:00 Test Item Value Reference Range Interpretation Comments WHITE BLOOD CELL (test code = 10.3 x10 3/uL 4.5-11.0 N WBC) RED BLOOD CELL (test code = 3.91 x10 6/uL 3.54-5.02 N RBC) HEMOGLOBIN (test code = HGB) 10.6 g/dL 11.0-15.0 L HEMATOCRIT (test code = HCT) 33.2 % 33.0-45.0 N MEAN CELL VOLUME (test code = 84.9 fL 81.0-99.0 N MCV) MEAN CELL HGB (test code = MCH) 27.1 pg 27.0-33.0 N MEAN CELL HGB CONCETRATION 31.9 g/dL 33.0-37.0 L (test code = MCHC) RED CELL DISTRIBUTION WIDTH CV 12.7 % 11.5-14.5 N (test code = RDW) RED CELL DISTRIBUTION WIDTH SD 38.9 fL 37.0-54.0 N (test code = RDW-SD) PLATELET COUNT (test code = 211 x10 3/uL 150-400 N PLT) MEAN PLATELET VOLUME (test code 11.8 fL 7.0-9.0 H = MPV) NEUTROPHIL % (test code = NT%) 69.4 % 56.0-77.0 N IMMATURE GRANULOCYTE % (test 1.1 % 0.0-2.0 N code = IG%) LYMPHOCYTE % (test code = LY%) 21.1 % 14.0-32.0 N MONOCYTE % (test code = MO%) 7.3 % 4.8-9.0 N EOSINOPHIL % (test code = EO%) 0.7 % 0.3-3.7 N BASOPHIL % (test code = BA%) 0.4 % 0.0-2.0 N NUCLEATED RBC % (test code = 0.0 % 0-0 N NRBC%) NEUTROPHIL # (test code = NT#) 7.15 x10 3/uL 2.0-7.6 N IMMATURE GRANULOCYTE # (test 0.11 x10 3/uL 0.00-0.03 H code = IG#) LYMPHOCYTE # (test code = LY#) 2.17 x10 3/uL 1.0-3.8 N MONOCYTE # (test code = MO#) 0.75 x10 3/uL 0.1-0.8 N EOSINOPHIL # (test code = EO#) 0.07 x10 3/uL 0.0-0.2 N BASOPHIL # (test code = BA#) 0.04 x10 3/uL 0.0-0.2 N NUCLEATED RBC # (test code = 0.00 x10 3/uL 0.0-0.1 N NRBC#) MANUAL DIFF REQUIRED (test code NO = MDIFF) - US BIOPHYS [id number] 00:00:00 [facility] 2000 Sex: F Name: GRUPO COHEN [facility] : 2000 Age/S: 22 / F [address] [place] [address] Unit #: [id number]: CYNTHIA [place] [address] Phys: Codie Gibbs MD Acct: [id number] Dis Date: Status: REG ER PHONE #: [phone] Exam Date: 02/21/20231803 FAX #: [phone] Reason: decreased movement. 30w EXAMS: CPT CODE: [id number] US BIOPHYS PROF [id number] PROCEDURE INFORMATION: Exam: US Biophysical Profile Without Non-Stress Test Exam date and time: 02/21/2023 5:40 PM Age: 22 years old Clinical indication: Other: Decreased movement. 30w; TECHNIQUE: Imaging protocol: US biophysical profile without non-stress testing. COMPARISON: US PREG AFTER 1ST TRI 04/05/2017 12:52 PM FINDINGS: BIOPHYSICAL PROFILE: breathing movement (BPP): 2 out of 2. body movement (BPP): 2 out of 2. tone (BPP): 2 out of 2. Amniotic fluid (BPP): 2 out of 2. Placental location: Anterior. Presentation: Cephalic. heart rate: 132 bpm. S/D ratio: 3.2. Amniotic fluid index: 14.7. Estimated gestational age by ultrasound: 30 weeks and 1 day. IMPRESSION: Biophysical profile score is 8 out o f 8. at 1940 Reported and signed by: Sin Kirkland M.D. CC: Taylor Thrasher MD; Codie Gibbs MD Technologist: Lizette Hale RDMS(AB) Trnscb Date/Time: 02/21/2023 (1939) [id number] Orig Print D/T: S: 02/21/2023 (1939) Probe: PAGE 1 Signed ReportPOCT MOLECULAR [id number] 00:13:33 Test Item Value Reference Range Interpretation Comments POCT Molecular Strep (test code = Positive Negative A 57636-4) Lab Interpretation (test code = Abnormal 46522-2) [facility] [id number] 00:13:33 Test Item Value Reference Range Interpretation Comments POCT Molecular Strep (test code = Positive Negative A 44626-8) Lab Interpretation (test code = Abnormal 31077-8) [facility] 13:13:00 Test Item Value Reference Range Interpretation Comments LEVETIRACETAM (test code 2.0 ug/mL 10.0-40.0 A Per formed At: BN = LEVTAM) [facility] [address] [id number] ra Preeti BARRAZA Ph:[id number] URINE HCG TRIAGE (ER ONLY)2021-12-07 13:43:00 Test Item Value Reference Range Interpretation Comments URINE HCG TRIAGE (ER ONLY) (test NEGATIVE Negative code = HCGTRIAGE) Urine Test Result: NEGATIVEAre internal controls (presence of a control line & clear background) OK? YesLot # of HCG Test Kit: [id number] Date of Kit: 01/17/23Test Performed by: CSTest Perfomed on: 12/04/21COMMENTS: NEGATIVECBC W/AUTO [id number] 00:07:00 Test Item Value Reference Range Interpretation Comments WHITE BLOOD CELL (test code = WBC) 8.5 K/uL 3.5-11.0 N RED BLOOD CELL (test code = RBC) 4.38 M/uL 3.54-5.02 N HEMOGLOBIN (test code = HGB) 13.1 GM/DL 11.0-15.0 N HEMATOCRIT (test code = HCT) 37.4 % 37.0-47.0 N MEAN CELL VOLUME (test code = MCV) 85.4 fL 81.0-99.0 N MEAN CELL HGB (test code = MCH) 29.9 pg 27.0-31.0 N MEAN CELL HGB CONCETRATION (test 35.0 GM/DL 33.0-37.0 N code = MCHC) RED CELL DISTRIBUTION WIDTH CV 13.3 % 11.5-14.5 N (test code = RDW) PLATELET COUNT (test code = PLT) 254 K/mm3 150-400 N MEAN PLATELET VOLUME (test code = 11.3 FL 8.8-13.1 N MPV) NEUTROPHIL % (test code = NT%) 74.7 % 34.0-64.0 H LYMPHOCYTE % (test code = LY%) 19.6 % 25.0-45.0 L MIXED % (test code = MX%) 5.7 % 3.0-15.0 N NEUTROPHIL # (test code = NT#) 6.3 K/uL 1.8-7.6 N LYMPHOCYTE # (test code = LY#) 1.7 K/uL 1.0-3.8 N MIXED # (test code = MX#) 0.5 k/mm3 0.1-0.8 N UA RFLX MICR CULT IF [id number] 20:24:00 Test Item Value Reference Range Interpretation Comments UA COLOR (test code = COLU) YELLOW YEL/STRAW UA APPEARANCE (test code = APPU) CLOUDY CLEAR A UA GLUCOSE DIPSTICK (test code = NEGATIVE NEGATIVE DGLUU) UA BILIRUBIN DIPSTICK (test code NEGATIVE NEGATIVE = BILU) UA KETONE DIPSTICK (test code = NEGATIVE NEGATIVE KETU) UA SPECIFIC GRAVITY (test code = 1.025 1.005-1.030 N SGU) UA BLOOD DIPSTICK (test code = NEGATIVE NEGATIVE DESEAN) UA PH DIPSTICK (test code = LIYA) 6.0 5.0-7.0 N UA PROTEIN DIPSTICK (test code = NEGATIVE NEGATIVE PROU) UA UROBILINIOGEN DIPSTICK (test 0.2 mg/dL 0.2-1.0 code = URO) UA NITRITE DIPSTICK (test code = NEGATIVE NEGATIVE SOFIE) UA LEUKOCYTE ESTERASE DIPSTICK TRACE NEGATIVE A (test code = LEUU) UA WBC (test code = WBCU) 4-9 WBC/HPF 0-3 A UA RBC (test code = RBCU) 4-10 RBC/HPF 0-3 UA WBC NO REFLEX (test code = 4-9 WBC/HPF 0-3 A WBCUCL) UA BACTERIA (test code = BACU) TRACE /HPF NONE SEEN UA SQUAMOUS CELLS (test code = 6-10 /HPF NONE SEEN A SQU) UA MUCUS (test code = MUCU) TRACE /LPF NONE SEEN UA DIPSTICK [id number] 15:36:00 Test Item Value Reference Range Interpretation Comments UA GLUCOSE DIPSTIC POC NEGATIVE NEGATIVE (test code = GLUUP) UA BILIRUBIN DIPSTICK NEGATIVE NEGATIVE (test code = BILU) UA KETONE DIPSTICK POC NEGATIVE NEGATIVE (test code = KETUP) UA SPECIFIC GRAVITY (test 1.020 1.005-1.030 N code = SGU) UA BLOOD DIPSTIC POC NEGATIVE NEGATIVE Perform ed by (test code = BLUP) certified concentrator operator at [facility] UA PH DIPSTIC POC (test 6 5.0-7.0 N code = PHUP) UA PROTEIN DIPSTICK POC NEGATIVE NEGATIVE (test code = DPROUP) UA UROBILINIOGEN QUAL NORMAL 0.2-1.0 (test code = UROQL) UA NITRITE DIPSTICK POC NEGATIVE Negative (test code = NITUP) UA LEUKOCYTE ESTERASE W TRACE NEGATIVE A REFLEX (test code = LEUUR) BASIC METABOLIC [id number] 13:57:00 Test Item Value Reference Range Interpretation Comments SODIUM (test code = NA/ABG) 141 MEQ/L 134-147 N POTASSIUM (test code = K/ABG) 4.1 MEQ/L 3.4-5.0 N CHLORIDE (test code = CL/ABG) 107 MEQ/L 100-108 N CREATININE ABG (test code = 0.7 mg/dL 0.6-1.0 N CREAABG) POC IONIZED CALCIUM (test code = 1.27 MMOL/L 1.12-1.32 N POCCA) POC GLUCOSE (test code = POCGLU) 106 MG/DL - XR RIBS UNI W/CXR 3+V [id number] 00:00:00 [facility] 2000 Sex: F FAX: Taylor Guadarrama [phone] [place]: [place] St: [facility] FAX: Estevan Arrieta Name: DEISY COHENHAL [place] FSED : 2000 Age/S: 21/F [address] [facility] Unit #: [id number] Loc: [place] [address] Phys: Neymar Arrieta MD Acct: [id number] Dis Date: Status: REG ER PHONE #: Exam Date: 12/04/2021 1411 FAX #:Reason: fall onto R ribs EXAMS: CPT CODE: [id number] XR RIBS UNI W/CXR 3+V [place] [id number] PROCEDURE INFORMATION: Exam: XR Right Ribs with PA Chest Exam date and time: 12/04/2021 2:01 PM Age: 21 years old Clinical indication: Injury or trauma; Fall; Rib area; Blunt trauma (contusions or hematomas); Additionalinfo: Fall onto R ribs TECHNIQUE: Imaging protocol: XR Right ribs with PA chest. Views: 3 views; Frontal view of the chest with Frontal and Oblique rib views COMPARISON: OT XR CHEST 2 V 10/14/2015 9:51 AM FINDINGS: Lungs: No consolidation. Pleural spaces: No pleural effusion. No pneumothorax. Heart/Mediastinum: No cardiomegaly. Vasculature is unremarkable. Bones/joints: No radiographically evident ribfracture. Notes: If there is further concern can consider addtional views or CT. IMPRESSION: No acute findings. No radiographically evident acute rib fracture, pneumothorax, or hemothorax. at 2545 Reported and signed by: Sin Kirkland M.D. CC: Taylor Thrasher MD; Neymar Arrieta MD Technologist: RT Branden(R)(CT) Trnscrd Date/Time/By: 12/04/2021 (1446) : By: [email or web address] [facility] Print D/T: S: 12/04/2021 (0819) PAGE 1 Signed Report- CT HEAD/BRAIN W/O CONT 2021-12-04 00:00:00 [facility] : 2000 Sex: F Name: GRUPO COHEN FSED : 2000 Age/S: 21 / F [address] [facility] Unit #: [id number] Loc: [place] [address] Phys: Neymar Arrieta MD Acct: [id number] Dis Date: Status: REG ER PHONE #: Exam Date: 12/04/2021 3265 FAX #: Reason: seizure, head trauma, vomiting EXAMS: CPT CODE: [id number] CT HEAD/BRAIN W/O CONT [id number] PROCEDURE INFORMATION: Exam: CT Head Without Contrast Exam date and time: 12/04/2021 1:54 PM Age: 21 years old Clinical indication: Injury or trauma and condition or disease; Fall; Blunt trauma (contusions or hematomas); Convulsions or seizures; Additional info: Seizure, head trauma, vomiting TECHNIQUE: Imaging protocol: Computed tomography of the head without contrast. Radiation optimization: All CT scans at this facility use at least one of these dose optimization techniques: automated exposure control; mA and/or kV adjustment per patient size (includes targeted examswhere dose is matched to clinical indication); or iterative reconstruction. COMPARISON: CT HEAD/BRAIN W/O CONT 10/14/2015 11:00 AM FINDINGS: Brain: No acute territorial infarct or intracranial hemorrhage. No mass effect or midline shift. Cerebral ventricles: No ventriculomegaly. Paranasal sinuses: Mild mucoperiosteal thickening in the ethmoid sinus. Small posterior left sphenoid mucous retention cystor polyp is present. No fluid levels. Mastoid air cells: Visualized mastoid air cells are well aerated. Bones/joints: No acute displaced fracture. Soft tissues: Unremarkable. IMPRESSION: No acute territorial infarct or intracranial hemorrhage detected. COMMENTS: If there is further clinical concern for intracranial pathology, MRI of the brain may be performed for further assessment. at 1434 Reported and signed by: Bebeto Stark M.D. CC: Taylor Thrasher MD; Neymar Arrieta MD Technologist:Sunshine Stark, RT(R)(CT) CTDI: DLP: Trnscb Date/Time: 12/04/2021 (315) [email or web address] Orig Print D/T: S: 12/04/2021 (8207) PAGE 1 Signed ReportCBC W/AUTO [id number] 07:10:00 Test Item Value Reference Range Interpretation Comments WHITE BLOOD CELL (test code = 16.1 x10 3/uL 6.0-17.0 N WBC) RED BLOOD CELL (test code = 3.68 x10 6/uL 4.2-5.4 L RBC) HEMOGLOBIN (test code = HGB) 10.0 g/dL 8.9-13.5 N HEMATOCRIT (test code = HCT) 32.2 % 31.0-41.0 N MEAN CELL VOLUME (test code = 87.5 fL 77.0-87.0 H MCV) MEAN CELL HGB (test code = 27.2 pg 26.0-30.0 N MCH) MEAN CELL HGB CONCETRATION 31.1 g/dL 32.0-36.0 L (test code = MCHC) RED CELL DISTRIBUTION WIDTH CV 12.9 % 11.5-14.5 N (test code = RDW) RED CELL DISTRIBUTION WIDTH SD 41.1 fL 37.0-54.0 N (test code = RDW-SD) PLATELET COUNT (test code = 180 x10 3/uL 150-400 N PLT) MEAN PLATELET VOLUME (test 11.3 fL 7.0-9.0 H code = MPV) NEUTROPHIL % (test code = NT%) 73.9 % 32.0-54.0 H IMMATURE GRANULOCYTE % (test 0.8 % 0.0-2.0 N code = IG%) LYMPHOCYTE % (test code = LY%) 16.4 % 28.0-48.0 L MONOCYTE % (test code = MO%) 8.0 % 3.0-15.0 N EOSINOPHIL % (test code = EO%) 0.7 % 1.0-8.0 L BASOPHIL % (test code = BA%) 0.2 % 0.0-2.0 N NUCLEATED RBC % (test code = 0.0 % 0-0 N NRBC%) NEUTROPHIL # (test code = NT#) 11.85 x10 3/uL 2.0-3.2 H IMMATURE GRANULOCYTE # (test 0.13 x10 3/uL 0.00-0.03 H code = IG#) LYMPHOCYTE # (test code = LY#) 2.64 x10 3/uL 1.0-3.8 N MONOCYTE # (test code = MO#) 1.29 x10 3/uL 0.1-0.8 H EOSINOPHIL # (test code = EO#) 0.11 x10 3/uL 0.0-0.4 N BASOPHIL # (test code = BA#) 0.04 x10 3/uL 0.0-0.2 N NUCLEATED RBC # (test code = 0.00 x10 3/uL 0.0-0.1 N NRBC#) MANUAL DIFF REQUIRED (test NO code = MDIFF) CBC W/AUTO [id number] 07:03:00 Test Item Value Reference Range Interpretation Comments WHITE BLOOD CELL (test code = x10 3/uL 6.0-17.0 WBC) RED BLOOD CELL (test code = RBC) x10 6/uL 4.2-5.4 HEMOGLOBIN (test code = HGB) 10.0 g/dL 8.9-13.5 N HEMATOCRIT (test code = HCT) 32.2 % 31.0-41.0 N MEAN CELL VOLUME (test code = fL 77.0-87.0 MCV) MEAN CELL HGB (test code = MCH) pg 26.0-30.0 MEAN CELL HGB CONCETRATION (test g/dL 32.0-36.0 code = MCHC) RED CELL DISTRIBUTION WIDTH CV % 11.5-14.5 (test code = RDW) PLATELET COUNT (test code = PLT) 180 x10 3/uL 150-400 N NEUTROPHIL % (test code = NT%) % 32.0-54.0 LYMPHOCYTE % (test code = LY%) % 28.0-48.0 NEUTROPHIL # (test code = NT#) x10 3/uL 2.0-3.2 LYMPHOCYTE # (test code = LY#) x10 3/uL 1.0-3.8 MANUAL DIFF REQUIRED (test code = MDIFF) RAPID PLASMA [id number] 10:37:00 Test Item Value Reference Range Interpretation Comments RAPID PLASMA REAGIN (test code = NONREACTIVE NONREACTIVE RPR) AG HEPATITIS B [id number] 10:37:00 Test Item Value Reference Range Interpretation Comments AG HEPATITIS B SURFACE NON REACTIVE INDEX NonReactive (test code = HBSAG) AB HIV 1 10:37:00 Test Item Value Reference Range Interpretation Comments AB HIV 1 2 (test code = NONREACTIVE INDEX NONREACTIVE VAB49GO) RAPID PLASMA [id number] 08:02:00 Test Item Value Reference Range Interpretation Comments RAPID PLASMA REAGIN (test code = RPR) NONREACTIVE AG HEPATITIS B [id number] 08:02:00 Test Item Value Reference Range Interpretation Comments AG HEPATITIS B SURFACE NON REACTIVE INDEX NonReactive (test code = HBSAG) AB HIV 1 08:02:00 Test Item Value Reference Range Interpretation Comments AB HIV 1 2 (test code = NONREACTIVE INDEX NONREACTIVE BIQ69VA) COVID 19 Asymptomatic IH [id number] 07:25:00 Test Item Value Reference Range Interpretation Comments COVID 19 Asymptomatic Negative Negative A nega tive result is IH AG (test code = presumpti ve and should COVNONPUIAG) be confirmedwit h an FDA authorized mole cular assay, if neces marium forpatient faiza gement.A positive result does not rule out co-inf ections withother patho gens.This test detects franklyn th viable (live) and non-viable,SARS -CoV, and SARS-CoV-2. Joel t performance dep ends on theamount of vi anupama (antigen) in th e sample.This joel t has not been FDA cleare d or approved; the t est hasbeen authori zed by FDA under an Em ergency Use Authorizati on(EUA) for use by labo ratories certified under the CLIA thatmeet the requirements to perform moderate, high or waivedcomplexit y tests. CBC W/AUTO [id number] 07:21:00 Test Item Value Reference Range Interpretation Comments WHITE BLOOD CELL (test code = 12.8 x10 3/uL 6.0-17.0 N WBC) RED BLOOD CELL (test code = 4.08 x10 6/uL 4.2-5.4 L RBC) HEMOGLOBIN (test code = HGB) 11.1 g/dL 8.9-13.5 N HEMATOCRIT (test code = HCT) 35.1 % 31.0-41.0 N MEAN CELL VOLUME (test code = 86.0 fL 77.0-87.0 N MCV) MEAN CELL HGB (test code = MCH) 27.2 pg 26.0-30.0 N MEAN CELL HGB CONCETRATION 31.6 g/dL 32.0-36.0 L (test code = MCHC) RED CELL DISTRIBUTION WIDTH CV 12.8 % 11.5-14.5 N (test code = RDW) RED CELL DISTRIBUTION WIDTH SD 39.8 fL 37.0-54.0 N (test code = RDW-SD) PLATELET COUNT (test code = 218 x10 3/uL 150-400 N PLT) MEAN PLATELET VOLUME (test code 11.2 fL 7.0-9.0 H = MPV) NEUTROPHIL % (test code = NT%) 71.6 % 32.0-54.0 H IMMATURE GRANULOCYTE % (test 0.7 % 0.0-2.0 N code = IG%) LYMPHOCYTE % (test code = LY%) 18.4 % 28.0-48.0 L MONOCYTE % (test code = MO%) 8.2 % 3.0-15.0 N EOSINOPHIL % (test code = EO%) 0.7 % 1.0-8.0 L BASOPHIL % (test code = BA%) 0.4 % 0.0-2.0 N NUCLEATED RBC % (test code = 0.0 % 0-0 N NRBC%) NEUTROPHIL # (test code = NT#) 9.13 x10 3/uL 2.0-3.2 H IMMATURE GRANULOCYTE # (test 0.09 x10 3/uL 0.00-0.03 H code = IG#) LYMPHOCYTE # (test code = LY#) 2.35 x10 3/uL 1.0-3.8 N MONOCYTE # (test code = MO#) 1.04 x10 3/uL 0.1-0.8 H EOSINOPHIL # (test code = EO#) 0.09 x10 3/uL 0.0-0.4 N BASOPHIL # (test code = BA#) 0.05 x10 3/uL 0.0-0.2 N NUCLEATED RBC # (test code = 0.00 x10 3/uL 0.0-0.1 N NRBC#) MANUAL DIFF REQUIRED (test code NO = MDIFF) CBC W/AUTO [id number] 07:05:00 Test Item Value Reference Range Interpretation Comments WHITE BLOOD CELL (test code = x10 3/uL 6.0-17.0 WBC) RED BLOOD CELL (test code = RBC) x10 6/uL 4.2-5.4 HEMOGLOBIN (test code = HGB) 11.1 g/dL 8.9-13.5 N HEMATOCRIT (test code = HCT) 35.1 % 31.0-41.0 N MEAN CELL VOLUME (test code = fL 77.0-87.0 MCV) MEAN CELL HGB (test code = MCH) pg 26.0-30.0 MEAN CELL HGB CONCETRATION (test g/dL 32.0-36.0 code = MCHC) RED CELL DISTRIBUTION WIDTH CV % 11.5-14.5 (test code = RDW) PLATELET COUNT (test code = PLT) 218 x10 3/uL 150-400 N NEUTROPHIL % (test code = NT%) % 32.0-54.0 LYMPHOCYTE % (test code = LY%) % 28.0-48.0 NEUTROPHIL # (test code = NT#) x10 3/uL 2.0-3.2 LYMPHOCYTE # (test code = LY#) x10 3/uL 1.0-3.8 MANUAL DIFF REQUIRED (test code = MDIFF) SURGICAL [id number] 07:07:00 RUN DATE: 06/06/18 [facility] *LIVE* PAGE 1 RUN TIME: 706 Specimen Inquiry RUN USER: INTERFACE --------- ---PATIENT: GRUPO COHEN LOC: [facility] U #: [id number] AGE/SX: 17/F ROOM: [facility] RE06/03/18REG DR: Taylor Thrasher MD : [birth year] BED: 1 DIS: 06/05/18 STATUS: DIS IN TLOC: SPEC #: [id number] RECD: 06/04/18 STATUS: CASSANDRA REQ #: [id number] KACI: 06/04/18 [facility] DR: Taylor Thrasher MD ENTERED: 06/06/18 SP TYPE: SURG SPEC OTHR DR: Héctor Stoll MD ORDERED: GM LEVEL 4 CODES: [id number] - PLACENTA, NOS COPIES TO: Taylor Thrasher MD [address] [place] [address] [email or web address] Héctor Stoll MD [address] [place] [address] PROCEDURES: GM LEVEL 4 (Incomplete) TISSUES: 1. PLACENTA, NOS - Placenta, 3rd trimester. FINAL DIAGNOSIS Placenta: - Third trimester placenta with acute chorionitis, deciduitis; 655 g (expected mean 499 g). - Trivascular umbilical cord with mild acute vasculitis, marginal insertion. GROSS AND MICROSCOPIC GROSS EXAMINATION: Received in formalin labeled placenta is a 655 g 18 x 15 x 2.3 cm placenta. The surface is bluegray with tortuous vessels on the surface. Maternal surface is intact with focal adherent hemorrhage. The marginally inserted three-vessel umbilical cord measures 37 cm in length 1 cm in diameter.The membranes are thin and translucent. The parenchyma is beefy red without identifiable lesions. SECTION CODE: (A) Membranes (B) umbilical cord (C)-(E) placental parenchyma. MICROSCOPIC EXAMINATION: The trivascular umbilical cord contains mild CONTINUED ON NEXT PAGE RUN DATE: 06/06/18 [facility] *LIVE* PAGE 2 RUN TIME: 706 Specimen Inquiry RUN USER: INTERFACE SPEC #: [id number] PATIENT: GRUPO COHEN #[id number] (Continued) GROSS AND MICROSCOPIC (Continued) acute inflammatory cells within vessel kraft. The membranes have acute inflammatory cells within the chorion. The villi are predominantly small, with decreased cellularity and prominent vasculature. The decidua shows acute and chronic inflammation. POST-OP DIAGNOSIS Term intrauterine , delivered PRE-OP DIAGNOSIS Term intrauterine ------ ------ Signed SIGNATURE ON FILE Bonnie Russell MD 06/06/1807 END OF REPORT Notes Date/Time Note Provider Source 2023-04-28 12:51:00-00:00 [facility] ([facility]) OB Disch REPORT#:[id number] REPORT STATUS: Signed DATE:04/28/23 TIME: 1251 PATIENT: GRUPO COHEN UNIT #: [id number] ROOM/BED: [place] [id number] : [birth year] AGE: 22 SEX: F ATTEND: Madai Thrasher MD ADM AUTHOR: Taylor Thrasher MD * ALL edits or amendments must be made on the twtMob/computer document * Subjective Subjective Admission EGA: Weeks: 39 Days: 2 EGA at delivery (wks/days): 39 weeks (3 days) Status/day: post Objective General VS: Vital Signs Date Temp Pulse Resp B/P B/P Mean Pulse Ox FiO2 04/27-04/28 36.4-37.1 72-104 16-18 98-125/51-79 69.0-95.0 84-100 Last Documented: Result Date Time Pulse Ox 98 04/28 0700 B/P 104/63 04/28 0700 Temp 36.7 04/28 0700 Pulse 75 / 0700 Resp 16 04/28 0700 B/P Mean 75.0 04/27 1524 PATIENT WEIGHT: Weight (lb): 215 Weight (oz): Weight (kg): 97.700 Physical Exam Lungs: unlabored breathing Neuro: Exam: alert, oriented x3, normal speech Abdomen: post gravid, soft, no abnormal tenderne ss, no guarding, no rebound tenderness Incision site: none Uterus: non-tender Fundus: non-tender Lochia: normal Episiotomy or laceration: none Vulva/Perineum: normal, no hematoma Lower extremities: Edema: trace Results Findings/Data: Laboratory Tests: 04/28 0454 Hematology WBC (4.5 - 11.0 x10 3/uL) 11.8 H RBC (3.54 - 5.02 x10 6/uL) 3.65 Hgb (11.0 - 15.0 g/dL) 10.0 L Hct (33.0 - 45.0 %) 31.5 L MCV (81.0 - 99.0 fL) 86.3 MCH (27.0 - 33.0 pg) 27.4 MCHC (33.0 - 37.0 g/dL) 31.7 L RDW (11.5 - 14.5 %) 12.7 Plt Count (150 - 400 x10 3/uL) 178 MPV (7.0 - 9.0 fL) 11.8 H Neut % (Auto) (56.0 - 77.0 %) 68.3 Lymph % (Auto) (14.0 - 32.0 %) 19.5 [place] % (Auto) (4.8 - 9.0 %) 9.7 H Eos % (Auto) (0.3 - 3.7 %) 1.4 Baso % (Auto) (0.0 - 2.0 %) 0.3 Neut # (Auto) (2.0 - 7.6 x10 3/uL) 8.05 H Lymph # (Auto) (1.0 - 3.8 x10 3/uL) 2.30 [place] # (Auto) (0.1 - 0.8 x10 3/uL) 1.15 H Eos # (Auto) (0.0 - 0.2 x10 3/uL) 0.16 Baso # (Auto) (0.0 - 0.2 x10 3/uL) 0.04 Abs Immat Gran (auto) (0.00 - 0.03 x10 3/uL) 0. 10 H Add Manual Diff NO Immature Gran % (0.0 - 2.0 %) 0.8 Nucleated RBC % (0 - 0 %) 0.0 Nucleated RBCs # (Man) (0.0 - 0.1 x10 3/uL) 0.0 0 Discharge Summary General Assessment: nml progress Date of admission: Date of admission: 04/26/23 Hospital course: augmentation of labor, inductio n of labor, spontaneous vag delivery, epidural anesthesia Procedures: spontaneous vaginal deliv Discharge condition: stable Discharge to: Home/Self Care Discharge diagnosis: full-term uncomp delivery Baby A: Vaginal delivery: spontaneous status: live born Gender: male 1 minute: 8 5 minutes: 8 Plan: routine care, discharge today Vaginal packing at delivery: No Discharge Instructions Instructions: routine instr sheet given, instr a nd warnings rev'd, specific instr as noted Diet: Regular Activity: No [place] for 6 Wks Additional discharge routines: Attending Follow- Up Contraception discussed: abstinence for 4-6 week s, will discuss at PP visit Discharge meds: Continue taking these medications: levETIRAcetam (KEPPRA) 750 MG TAB 1,500 MILLIGRAM ORAL TWICE DAILY. ASPIRIN (ASPIRIN) 81 MG TAB.CHEW 81 MILLIGRAM ORAL DAILY. Start taking the following new medications: IBUPROFEN (MOTRIN) 800 MG TAB 800 MILLIGRAM ORAL THREE TIMES DAILY NEEDED. as needed for PAIN Qty = 30 No Refills Prescriptions: e-prescribe Consultation(s): Consultation performed: anesthesia Add'l Follow-up Appointments Attending Physician: Attending Physician: Taylor Thrasher MD at 1253 RPT #:[id number] END OF REPORT 2023-04-28 12:49:00-00:00 [facility] ([facility]) OB Postpart Progr Note REPORT#:[id number] REPORT STATUS: Signed DATE:04/28/23 TIME: 1249 PATIENT: GRUPO COHEN UNIT #: [id number] ROOM/BED: [place] [address] : 02 AGE: 22 SEX: F ATTEND: Madai Thrasher MD ADM AUTHOR: Taylor Thrasher MD * ALL edits or amendments must be made on the twtMob/computer document * Subjective Subjective Admission EGA: Weeks: 39 Days: 2 EGA at delivery (wks/days): 39 weeks (3 days) Status/Day: post Objective Nursing Documentation Review Nursing Data: Post hemorrhage risk score: LowRisk General VS: Vital Signs: Date Time Temp Pulse Resp B/P B/P Pulse O2 O2 F low FiO2 Mean Ox Delivery Rate 04/28 0700 36.7 75 16 104/63 98 09/09 0430 36.7 72 16 116/79 97 09/09 0000 36.8 91 16 121/72 98 09/08 1930 36.4 94 16 117/74 100 09/08 1800 37.1 95 18 118/76 97 09/08 1524 75.0 09/08 1524 96 101/52 09/08 1510 76.0 09/08 1510 99 111/53 09/08 1428 79.0 09/08 1428 85 111/55 09/08 1409 95.0 09/08 1409 92 125/74 09/08 1354 81.0 09/08 1354 95 111/62 09/08 1340 69.0 09/08 1340 83 98/52 09/08 1331 72.0 09/08 1331 81 104/51 09/08 1313 87 93 09/08 1308 88 89 09/08 1303 88 99 09/08 1300 36.8 16 99 09/08 1258 83 99 09/08 1256 104 91 09/08 1253 90 84 09/08 1250 78 88 PATIENT WEIGHT: Weight (lb): 215 Weight (oz): Weight (kg): 97.700 Physical Exam Lungs: No distress Neuro: Exam: alert, oriented x3, normal speech Abdomen: soft, no abnormal tenderness, no guardi ng, no rebound tenderness Incision site: none Uterus: non-tender Fundus: non-tender Lochia: normal Episiotomy or laceration: none Vulva/Perineum: normal, no hematoma CVA tenderness: none Lower extremities: Edema: trace Result Findings/Data: Laboratory Tests: 04/28 454 Hematology WBC (4.5 - 11.0 x10 3/uL) 11.8 H RBC (3.54 - 5.02 x10 6/uL) 3.65 Hgb (11.0 - 15.0 g/dL) 10.0 L Hct (33.0 - 45.0 %) 31.5 L MCV (81.0 - 99.0 fL) 86.3 MCH (27.0 - 33.0 pg) 27.4 MCHC (33.0 - 37.0 g/dL) 31.7 L RDW (11.5 - 14.5 %) 12.7 Plt Count (150 - 400 x10 3/uL) 178 MPV (7.0 - 9.0 fL) 11.8 H Neut % (Auto) (56.0 - 77.0 %) 68.3 Lymph % (Auto) (14.0 - 32.0 %) 19.5 [place] % (Auto) (4.8 - 9.0 %) 9.7 H Eos % (Auto) (0.3 - 3.7 %) 1.4 Baso % (Auto) (0.0 - 2.0 %) 0.3 Neut # (Auto) (2.0 - 7.6 x10 3/uL) 8.05 H Lymph # (Auto) (1.0 - 3.8 x10 3/uL) 2.30 [place] # (Auto) (0.1 - 0.8 x10 3/uL) 1.15 H Eos # (Auto) (0.0 - 0.2 x10 3/uL) 0.16 Baso # (Auto) (0.0 - 0.2 x10 3/uL) 0.04 Abs Immat Gran (auto) (0.00 - 0.03 x10 3/uL) 0 .10 H Add Manual Diff NO Immature Gran % (0.0 - 2.0 %) 0.8 Nucleated RBC % (0 - 0 %) 0.0 Nucleated RBCs # (Man) (0.0 - 0.1 x10 3/uL) 0.0 0 Diagnosis, Assessment Plan Diagnosis, Assessment Plan Assessment: nml progress Plan: routine care, discharge today Consultation(s): Consultation performed: anesthesia Plan discussed with: patient at 1250 RPT #:[id number] END OF REPORT 2023-04-27 13:27:00-00:00 [facility] ([facility] OB Delivery Note REPORT#:[id number] REPORT STATUS: Signed DATE:04/27/23 TIME: 1327 PATIENT: GRUPO COHEN UNIT #: [id number] ROOM/BED: [place] [address] : 02 AGE: 22 SEX: F ATTEND: Madai Thrasher MD ADM AUTHOR: Taylor Thrasher MD * ALL edits or amendments must be made on the [employer]/computer document * OB Delivery Pre-delivery GBS status: GBS status: negative Ebony evaluation at delivery: NRP certified pe rsonnel Admission EGA: Weeks: 39 Days: 2 EGA at delivery (wks/days): 39 weeks (3 days) Blood Loss/Details Blood loss at delivery: <1K: no sx hypovol=no he m, no more than expected QBL at delivery (ml's): 21 Baby A Information Baby A information Delivery date: 04/27/23 Delivery time: 1256 status: live born Wt of baby (grams): 3260 Gender: male 1 minute: 8 5 minutes: 8 Presentation: vertex ABG details Baby A Cord blood gases: not collected Nuchal cord Baby A Nuchal cord: yes (loose and reduced) Vaginal Delivery Vaginal Delivery Vaginal delivery: Labor: spontaneous Medications/Devices used: oxytocin, cervidil Vaginal delivery: spontaneous Amniotic fluid: clear Anesthesia type: epidural anesthesia Episiotomy: none Episiotomy repair: no Laceration repair: no Placenta: spontaneous, intact Post delivery meds used: oxytocin Count: correct, vag exam neg for sponges Vaginal packing: No Mother's condition: mother stable 's condition: infant stable in room Extraction details OVD performed: no Shoulder dystocia present: no at 1330 RPT #:[id number] END OF REPORT 2023-04-27 13:21:00-00:00 [facility] ([facility] OB Admission / H P REPORT#:[id number] REPORT STATUS: Signed DATE:04/27/23 TIME: 1321 PATIENT: GRUPO COHEN UNIT #: [id number] ROOM/BED: 003-1 : 02 AGE: 22 SEX: F ATTEND: Madai Thrasher MD ADM AUTHOR: Taylor Thrasher MD * ALL edits or amendments must be made on the twtMob/computer document * OB History Current : Admission EGA (weeks) 39 Admission EGA (days) 2 Past History Additional Medical History: Anxiety, depression Additional Surgical History: Mother reports none Smoking status for patients 13 years old or olde r: Former Smoker Allergies: Coded Allergies: No Known Allergies (04/26/23) Objective General VS: Last Documented: Result Date Time Pulse Ox 99 04/27 1258 Pulse 83 04/27 1258 B/P Mean 69.0 04/27 1213 B/P 100/62 04/27 1213 Temp 36.8 04/27 1119 Resp 16 04/27 1119 Vital Signs Date Temp Pulse Resp B/P B/P Mean Pulse Ox FiO2 /-04/27 36.5-36.8 75-122 16-17 96-122/53-78 69.0-92.0 83-100 PATIENT WEIGHT: Weight (lb): 215 Weight (oz): Weight (kg): 97.700 Physical Exam HEENT: normocephalic w/o injury Lungs: unlabored breathing Neuro: Exam: alert, oriented x3, normal speech Abdomen: gravid, soft, no abnormal tenderness, n o guarding, no rebound tenderness Uterine activity: Monitor: toco Frequency (description): irregular Pelvic exam: Pelvis clinically adequate: yes, inlet appears appropriate, pubic bone config appropr, no midpelvic contraction Vulvar lesions: none, no evidence herpetic les, no evidence of other STD Vagina: normal, non-septated, w/o apparent lesi ons Cervical/ exam: Dilatation (cm): 4 Effacement (%): 50 station: - 3 Membranes: Membranes: AROM ROM date: 04/27/23 ROM time: 926 Amniotic fluid: clear Lower extremities: Edema: trace Baby A: Baby A baseline: 140 bpm Baby A variability: moderate 6-25 bpm Baby A accelerations: 15 X 15 Baby A decelerations: none Baby A FHR category: category 1 Diagnosis, Assessment Plan Diagnosis, Assessment Plan Free Text A P: 22 yr old LMP: unknown EDC: 05/01/2023 @ 39+3 weeks GA dated by 8+2 week sono on 09/21/22 presenting for scheduled IOL . She has no acute complaints at this time, pt reports feeling well. Denies SALAS , Blurry vision, nausea, vomiting, vaginal bleeding. +FM PNC complicated by: Seizures -Keppra 1500mg BID -last seizure episode 11/2021 Depression/anxiety -controlled without medication -denies suicidal ideation Delivery plan: >/= 39 weeks ROS: - CONSTITUTIONAL: Denies weight loss, fever and chills. - HEENT: Denies changes in vision and hearing. - RESPIRATORY: Denies SOB and cough. - CV: Denies palpitations and CP. - GI: Denies abdominal pain, nausea, vomiting a nd diarrhea. - : Denies dysuria and urinary frequency. - MSK: Denies myalgia and joint pain. - SKIN: Denies rash and pruritus. - NEUROLOGICAL: Denies headache and syncope. - PSYCHIATRIC: Denies recent changes in mood. D enies anxiety and depression OBhx: x 3, 1 child was given up for adoption to family member GynHx: denies fibroids, or STIs MHx: seizures, depression, anxiety, anemia SurgHx: denies Family Hx: HTN, DM, cancer, Stroke SHx: Denies Alcohol, Cigarette and illicit drug Use Meds: PNV, Keppra Allergy: NKDA Labs: T S: O pos Antibody: Neg Hg Phenotype: AA H/H: 12.7/37.7 Plt: 284 HIV: Neg HbsAg: Neg Rubella: Immune VZ: Immune RPR: NR GC/Chlam: Neg NIPT: LR-Male AFP: WNL GCT: 102mg/dl GBS: Negative 09/21/22- Office Sono: SIUP c/w 8+2 wks gestation, +FHTs 162 Imp: IUP @ 39+3 Weeks GA admitted for IOL. GBS N eg. Cervidil s/p AROM Plan: Admit to labor and delivery NPO Pitocin Augmentation Anesthesia for pain mgmt at 1325 RPT #:[id number] END OF REPORT 2023-02-21 17:28:00-00:00 [facility] ([facility]) GLADIS Evaluation Note REPORT#:[id number] REPORT STATUS: Signed DATE:02/21/23 TIME: 1727 PATIENT: GRUPO COHEN UNIT #: [id number] ROOM/BED: : 02 AGE: 22 SEX: F ATTEND: Tate Gibbs MD ADM DT: AUTHOR: Codie Gibbs MD * ALL edits or amendments must be made on the twtMob/computer document * See Addendum GLADIS History Chief complaint: decreased movement HPI: 22 yo @ 30w3 with decreased FM x 2 days. no vb, no lof/rom. states when on monitor feels normal movement Prior x 3, FT no complications PNC with Dr. Thrasher history: : 4 Term: 3 : 0 Abortus: 0 Living children: 3 Current : EDC: 05/01/23 EGA (weeks/days): 30w3 Past medical history: seizures (on Keppra 750 mg po bid) Past surgical history: denies PSH Social history: no alcohol use, no tobacco use, no drug use Family history Relation not specified for: Family History: Unknown Medications: Home Medications: Medication Dose/Rte/Freq Days Qty Entered Last Max Daily Dose Reviewed levETIRAcetam (KEPPRA) 1,500 MG PO BID 02/21/23 02/21/23 Strength: 750 MG TAB 4753 1701 ASPIRIN 81 MG PO DAILY 02/21/23 02/21/23 Strength: 81 MG TAB.CHEW 3258 1717 Allergies Coded Allergies: No Known Allergies (02/21/23) Review of Systems : Reports: . Denies: vaginal bleeding, vag inal discharge. All systems rev neg: except as marked Objective General VS: Last Documented: Result Date Time B/P Mean 88.0 1736 B/P 119/70 07/ 1736 Pulse 92 / 1736 Pulse Ox 99 / 1716 Resp 18 / 1716 Vital Signs Date Temp Pulse Resp B/P B/P Mean Pulse Ox FiO2 07/05 91-99 18 119-131/70-74 88.0-95.0 93-99 PATIENT WEIGHT: Weight (lb): 156 Weight (oz): Weight (kg): 70.900 Physical Exam HEENT: normocephalic w/o injury, pupils equal Lungs: unlabored breathing Neuro: Exam: alert, oriented x3, normal speech, normal gait Abdomen: gravid, soft, no abnormal tenderness, n o guarding, no rebound tenderness Uterine activity: Monitor: toco Frequency (description): none Pelvic exam: Pelvis clinically adequate: yes (not indicated) FHR evaluation: Baseline: 140 bpm Variability: moderate 6-25 bpm Accelerations: 15 X 15 Decelerations: none FHR category: category 1 Lower extremities: Edema: none Calf tenderness: negative Diagnosis, Assessment Plan Diagnosis, Assessment Plan Free Text A P: A: 22 yo @ 30w3 with decreased FM now normal while here on monitor P1. NST x 1 hour cat 1 2. BPP ordered and done if 8/10 with normal BRIELLE, 10/10 with NST, d/c manda e ptl precautions f/u wth primary OB as scheduled kick counts reviewew with pt Plan discussed with: patient, spouse/partner, nu rse Electronically Signed by Codie Gibbs MD o n 02/21/23 at 1924 Addendum 1: 02/21/23 2001 by Codie Gibbs MD FINDINGS: BIOPHYSICAL PROFILE: breathing movement (BPP): 2 out of 2. body movement (BPP): 2 out of 2. tone (BPP): 2 out of 2. Amniotic fluid (BPP): 2 out of 2. Placental location: Anterior. Presentation: Cephalic. heart rate: 132 bpm. S/D ratio: 3.2. Amniotic fluid index: 14.7. Estimated gestational age by ultrasound: 30 wee ks and 1 day. IMPRESSION: Biophysical profile score is 8 out of 8. Electronically Signed by Sin Kirkland M.D. o n 02/21/2023 at 1940 Reported and Signed by: Sin Kirkland M.D. d/c home Electronically Signed by Codie Gibbs MD o n 02/21/23 at 2001 RPT #:[id number] END OF REPORT 2023-02-21 17:26:00-00:00 [facility] ([facility]) OB Medical Screening Exam REPORT#:[id number] REPORT STATUS: Signed DATE:02/21/23 TIME: 1725 PATIENT: GRUPO COHEN UNIT #: [id number] ROOM/BED: : 02 AGE: 22 SEX: F ATTEND: Madai Thrasher MD ADM DT: AUTHOR: Codie Gibbs MD * ALL edits or amendments must be made on the twtMob/Easydiagnosis document * Medical Screening Exam Provider Attestation Attestation: The QMP MSE reviewed. Comments: pt is a 22 yo @ 30w1d presents with decr eased FM, +fhts obtained Md notified at 17:22 pm ta bedside at 17:25 pm Electronically Signed by Codie Gibbs MD o n 02/21/23 at 1728 RPT #:[id number] END OF REPORT 2022-05-07 22:23:00-00:00 [facility] ([facility]) EMERGENCY PROVIDER REPORT REPORT#:[id number] REPORT STATUS: Signed DATE:05/07/22 TIME: 2222 PATIENT: GRUPO COHEN UNIT #: [id number] ROOM/BED: AGE: 21 SEX: F PCP PHYS: Taylor Thrasher MD SERVICE AUTHOR: Gregor Rojas MD * ALL edits or amendments must be made on the twtMob/Easydiagnosis document * HPI-General Illness Free Text HPI Notes Free Text HPI Notes 21-year-old female with history of seizures pres enting here for medication refill for Keppra. She reports she ran out of he r Keppra. Reports her last seizure was back in November. Patient denyi ng any complaints. Patient reports she is in the process of trying to follow-up with a neurologist. General Confirmed Patient Yes Initial Greet Date/Time 05/07/222208 Presentation Chief Complaint medication refill Review of Systems Review of Systems Constitutional Denies: Chills, Fatigue, Fever. Respiratory Denies: Shortness of breath. Cardiovascular Denies: Chest pain. Neurologic Denies: Focal weakness, Headache, Lightheaded, N umbness, Problem walking, Seizure. Past Medical History - Adult Stated Complaint MEDICATION REFILL Allergies Coded Allergies: No Known Allergies (05/07/22) Home Medications Active Scripts IBUPROFEN (MOTRIN) 800 MG PO TID PRN PRN PAIN IBUPROFEN (MOTRIN) 800 MG PO TID PRN PRN PAIN # 45 TABS Prov: 07/28/20 ONDANSETRON ODT (ZOFRAN ODT) 4 MG PO Q6H PRN PRN NAUSEA/VOMITING ONDANSETRON ODT (ZOFRAN ODT) 4 MG PO Q6H PRN IN N NAUSEA/VOMITING #15 TABS Prov: 12/04/21 CEPHALEXIN (KEFLEX) 500 MG PO Q12H CEPHALEXIN (KEFLEX) 500 MG PO Q12H #10 CAPS Prov: 12/04/21 Reported Medications PNV/FE FUM/FA ( MULTIVITAMIN) 1 TAB PO D AILY PNV/FE FUM/FA ( MULTIVITAMIN) 1 TAB PO D AILY levETIRAcetam (KEPPRA) Additional Medical History Anxiety, depression Additional Surgical History Mother reports none Smoking status for patients 13 years old or olde r: Never Smoker Physical Exam Vital Signs Vital Signs First Documented: Result Date Time Pulse Ox 99 05/07 2208 B/P 106/69 05/07 2208 B/P Mean 81 05/07 2208 O2 Delivery Room air 05/07 2208 Temp 36.8 05/07 2208 Pulse 90 05/07 2208 Resp 05/07 Last Documented: Result Date Time Pulse Ox 99 05/07 2208 B/P 106/69 05/07 2208 B/P Mean 81 05/07 2208 O2 Delivery Room air 05/07 2208 Temp 36.8 05/07 2208 Pulse 90 05/07 2208 Resp 05/07 Review of Vital Signs Reviewed Basic Physical Exam Basic PE GEN: Well appearing /NAD, HEAD: Atraumatic/NC, EYES: PERRL, conj clear, ENT: Membranes moist, NECK: Supple, RESP: No res p distress, CV: Reg rate rhythm, EXT: No gross abnormality, SKIN: No rash es, warm/dry, NEURO: alert oriented, NEURO: gross movement NL, PSYCH: NL th ought content Physical Exam Resp/Chest Respiratory/Chest Breath sounds NL, Breath soun ds = bilat, No respiratory distress Neurologic Neurologic Oriented X3, Speech NL, No m otor deficits, No sensory deficits, CN II - XII intact, Gait NL Patient Discharge Departure Vital Signs/Condition Vital Signs First Documented: Result Date Time Pulse Ox 99 05/07 2208 B/P 106/69 05/07 2208 B/P Mean 81 05/078 O2 Delivery Room air 05/07 2208 Temp 36.8 05/07 2208 Pulse 90 05/078 Resp 16 05/07 2208 Last Documented: Result Date Time Pulse Ox 99 05/07 2208 B/P 106/69 05/07 2208 B/P Mean 81 05/07 2208 O2 Delivery Room air 05/07 2208 Temp 36.8 05/07 2208 Pulse 90 05/07 2208 Resp 16 05/07 2208 All vital signs available at the time of this en try have been reviewed. Condition Stable Clinical Impression Clinical Impression Primary Impression: Medication refill Disposition Decision Discharge )( Discharged to Home Yes )( Time 2222 )( Date 05/07/22 Discharge/Care Plan Counseled Regarding Diagnosi s, Prescriptions, Need for follow-up, When to return to ED (Auto) Prescriptions Current Visit Scripts levETIRAcetam (KEPPRA) 1,000 MG PO BID levETIRAcetam (KEPPRA) 1,000 MG PO BID #60 TABS Prescriptions Reviewed Risks, Benefits, Alternat nicolette treatment Additional Instructions Follow-up with your primary care provide r and neurology for further management of his seizures. Referrals Provider Referral: Romain Barajas MD Follow-Up: Call for appointment Notes: neurology Address: [address] [address] Departure Forms [facility] PCP LIST Discharge Note I have spoken with the patie nt and/or caregivers. I have explained the patient's condition, diagnoses and brooke atment plan based on the information available to me at this time. I have answered the patient's and/ or caregiver's questions and addressed any concerns. The patient and/or careg sangeetha have as good an understanding of the patient 's diagnosis, condition and treatment plan as can be expected at this point. The vital signs have bee n stable. The patient's condition is stable and appr opriate for discharge from the emergency department. The patient will pursue further outpatient evalu ation with the primary care physician or other designated or consulting phys ician as outlined in the discharge instructions. The patient and/or caregivers are agreeable to this plan of care and follow-up instructions have been exp lained in detail. The patient and/or caregivers have received these instructio ns in written format and have expressed an understanding of the discharge inst ructions. The patient and/or caregivers are aware that any significant change in condition or worsening of symptoms should prompt an immediate return to [facility] or the closest emergency department or a call to 911. Electronically Signed by Gregor Rojas MD on at 2227 RPT #:[id number] END OF REPORT 2021-12-04 15:25:00-00:00 [facility] ([facility] EMERGENCY PROVIDER REPORT REPORT#:[id number] REPORT STATUS: Signed DATE:12/04/21 TIME: 1525 PATIENT: GRUPO COHEN UNIT #: [id number] ROOM/BED: AGE: 21 SEX: F PCP PHYS: Taylor Thrasher MD SERVICE AUTHOR: Nain Arrieta MD * ALL edits or amendments must be made on the el ectronic/computer document * HPI-Seizure Free Text HPI Notes Free Text HPI Notes 21-year-old female with history of epilepsy pres ents with seizure. Patient reports seizure 1 hour ago, falling onto concrete. Unknown if head trauma, but father reports 1 episode of emesis after seizure . Reports post ictal sleepiness. Reports she has not had seizures in several months. Patient reports she is taking keppra 1g BID, pool s she report that she sometimes misses doses. She reports she is under a lot of stress and has lost some weight recently. Denies recent illness. General Initial Greet Date/Time 12/04/21 1330 Presentation Chief Complaint Seizure Review of Systems Focused Review of Systems Constitutional Denies: Fever. Eyes Denies: Diplopia. Respiratory Denies: Shortness of breath. Cardiovascular Denies: Chest pain. Musculoskeletal Denies: Back pain, Neck pain. Skin Denies: Laceration. Neurologic Reports: Headache, Seizure. Additional Review of Systems GI Reports: Nausea, Vomiting. Denies: Abdominal danay n. Past Medical History - Adult Stated Complaint SEIZURE, HEADACHE Allergies Coded Allergies: No Known Allergies (07/27/20) Home Medications Active Scripts IBUPROFEN (MOTRIN) 800 MG PO TID PRN PRN PAIN IBUPROFEN (MOTRIN) 800 MG PO TID PRN PRN PAIN # 45 TABS Prov: 07/28/20 Reported Medications PNV/FE FUM/FA ( MULTIVITAMIN) 1 TAB PO D AILY PNV/FE FUM/FA ( MULTIVITAMIN) 1 TAB PO D AILY levETIRAcetam (KEPPRA) Pt reports no significant: Past medical history Additional Medical History Anxiety, depression Additional Surgical History Mother reports none Smoking status: Smoking status for patients 13 years old or old er: Current some day smoker Physical Exam Vital Signs Vital Signs First Documented: Result Date Time Pulse Ox 99 12/04 1329 B/P 113/69 12/04 1329 B/P Mean 83 12/04 1329 O2 Delivery Room air 12/04 1329 Temp 36.7 12/04 1329 Pulse 84 12/04 1329 Resp 18 12/04 1329 Last Documented: Result Date Time Pulse Ox 99 12/04 1541 B/P 122/73 12/04 1541 B/P Mean 89 12/04 1541 O2 Delivery Room air 12/04 1541 Pulse 84 12/04 1541 Resp 16 12/04 1541 Temp 36.7 12/04 1329 Review of Vital Signs Reviewed Focused PE General/Const General/Const Awake, Alert, No acute distress MS Head Head Atraumatic Eyes Eyes PERRL, EOMI, No nystagmus Ears/Nose/Throat Ears/Nose/Throat Airway patent, Mucous membrane s moist, Pharynx NL MS Neck Neck No meningismus, Full range of motion, Non- tender, No midline vertebral tend Resp/Chest Respiratory/Chest Breath sounds NL, Breath soun ds = bilat, No respiratory distress Cardiovascular Cardiovascular Heart rate NL, Regular rhythm, H eart sounds NL Abdomen/GI Abdomen/GI Soft, Non-tender, No guarding MS Upper Extrem Upper Extremity/MS Atraumatic MS Lower Extrem Lower Ext/Pelvis/MS Atraumatic Skin Skin Atraumatic Neurologic Neurologic Oriented X3, Speech NL, No m otor deficits, No sensory deficits, CN II - XII intact, Cerebellar NL, Memory NL, Gait NL Interpretation Diagnostics Lab Results Interpretation Results Laboratory Tests: 12/04 12/04 1532 1355 Blood Gas Sodium (134 - 147 MEQ/L) 141 Potassium (3.4 - 5.0 MEQ/L) 4.1 Chloride (100 - 108 MEQ/L) 107 Ionized Calcium (1.12 - 1.32 MMOL/L) 1.27 Chemistry POC Creatinine (0.6 - 1.0 mg/dL) 0.7 POC Glucose (mg/dL) (MG/DL) 106 Urines POC Urine pH (5.0 - 7.0) 6 Ur Specific [place] (1.005 - 1.030) 1.020 POC Urine Protein (NEGATIVE) NEGATIVE POC Ur Glucose (UA) (NEGATIVE) NEGATIVE POC Urine Ketones (NEGATIVE) NEGATIVE POC Urine Blood (NEGATIVE) NEGATIVE POC Urine Nitrite (Negative) NEGATIVE Urine Bilirubin (NEGATIVE) NEGATIVE POC Urine Urobilinogen (0.2 - 1.0) NORMAL POC U Leukocyte Esteras (NEGATIVE) TRACE H Recent Impressions: CAT SCAN - CT HEAD/BRAIN W/O CONT 12/04 1356 Report Impression - Status: SIGNED Entered: 12/04/2021 1434 IMPRESSION: No acute territorial infarct or intracranial hem orrhage detected. COMMENTS: If there is further clinical concern for intracr anial pathology, MRI of the brain may be performed for further as sessment. Impression By: [email or web address] - Bebeto Stark M.D. RADIOLOGY - XR RIBS UNI W/CXR 3+V RT 12/04 1411 Report Impression - Status: SIGNED Entered: 12/04/2021 1448 IMPRESSION: No acute findings. No radiographically evident a cute rib fracture, pneumothorax, or hemothorax. Impression By: [email or web address] - Sin Kirkland, M.D. Point of Care Testing Urinalysis Interpretation Positive leukocyte est Test Negative - urine HCG Re-Evaluation MDM Free Text MDM Notes Free Text MDM Notes 21-year-old female with history of epile psy presents with seizure. Patient had neuro baseline here, had a normal neuro exam. Wi ll obtain CT head, in setting of suspected head trauma and vomiting. No infectious symptoms, low suspicion for [employer] infection. Will assess for other causes of b reakthrough seizures. But consider stress, medication noncompliance. Re-Evaluation/Progress #1 Text/Dict Note Lab work unremarkable. CT head and x-ray without acute findings. Patient now tolerating p.o. Discharged home with neurology f ollow-up. Mother reports she will make follow-up appointment tomorrow with ne urology. Return precautions provided. Instructed patient that Tyra regina is a send out, and will be able to see the results on the [employer] francesco. ED Course Medication(s) Ordered Medication(s) Ordered: Central Nervous System Agents Sig/Marques Start time Last Medication Dose Route Stop Time Status Admin Acetaminophen 1,000 MG X1ED STA 12/04 1342 DC 0 12/04 PO 12/04 1343 1355 Electrolytic, Caloric, And Rylee Sig/Marques Start time Last Medication Dose Route Stop Time Status Admin Sodium Chloride 1,000 ML X1ED STA 12/04 1459 DC D 12/04 IV 12/04 1558 1501 Gastrointestinal Drugs Sig/Marques Start time Last Medication Dose Route Stop Time Status Admin Ondansetron HCl 4 MG X1ED STA 12/04 1458 DC IV 12/04 1459 1501 Prochlorperazine 10 MG X1ED STA 12/04 1342 DC 12/04 Edisylate IV 12/04 1343 1356 Patient Discharge Departure Vital Signs/Condition Vital Signs First Documented: Result Date Time Pulse Ox 99 12/04 1329 B/P 113/69 12/04 1329 B/P Mean 83 12/04 1329 O2 Delivery Room air 12/04 1329 Temp 36.7 12/04 1329 Pulse 84 12/04 1329 Resp 18 12/04 1329 Last Documented: Result Date Time Pulse Ox 99 12/04 1541 B/P 122/73 12/04 1541 B/P Mean 89 12/04 1541 O2 Delivery Room air 12/04 1541 Pulse 84 12/04 1541 Resp 16 12/04 1541 Temp 36.7 12/04 1329 All vital signs available at the time of this en try have been reviewed. Clinical Impression Clinical Impression Primary Impression: Seizure Secondary Impressions: Urinary tract infection Disposition Decision Discharge )( Discharged to Home Yes )( Time 1535 )( Date 12/04/21 Discharge/Care Plan Counseled Regarding Diagnosi s, Lab results, Imaging studies, Prescriptions, Need for follow-up, When to return to ED (Auto) Prescriptions Current Visit Scripts ONDANSETRON ODT (ZOFRAN ODT) 4 MG PO Q6H PRN PRN NAUSEA/VOMITING ONDANSETRON ODT (ZOFRAN ODT) 4 MG PO Q6H PRN IN N NAUSEA/VOMITING #15 TABS CEPHALEXIN (KEFLEX) 500 MG PO Q12H CEPHALEXIN (KEFLEX) 500 MG PO Q12H #10 CAPS Patient Instructions ED Cyst itis Female Adult, ED Seizure, Recurrent (Adult), ED Seizure, Recurrent (Child) Additional Instructions Please call neurology in the morning to arrange close outpatient follow-up. Referrals Provider Group: PRIMARY CARE Follow-Up: 1-2 Days Discharge Note I have spoken with the patie nt and/or caregivers. I have explained the patient's condition, diagnoses and brooke atment plan based on the information available to me at this time. I have answered the patient's and/ or caregiver's questions and addressed any concerns. The patient and/or careg sangeetha have as good an understanding of the patient 's diagnosis, condition and treatment plan as can be expected at this point. The vital signs have bee n stable. The patient's condition is stable and appr opriate for discharge from the emergency department. The patient will pursue further outpatient evalu ation with the primary care physician or other designated or consulting phys ician as outlined in the discharge instructions. The patient and/or caregivers are agreeable to this plan of care and follow-up instructions have been exp lained in detail. The patient and/or caregivers have received these instructio ns in written format and have expressed an understanding of the discharge inst ructions. The patient and/or caregivers are aware that any significant change in condition or worsening of symptoms should prompt an immediate return to [facility] or the closest emergency department or a call to 911. at 1633 RPT #:[id number] END OF REPORT 2020-07-29 12:53:00-00:00 [facility] ([facility]) OB Postpart Progr Note REPORT#:[id number] REPORT STATUS: Signed DATE:07/29/20 TIME: 1253 PATIENT: GRUPO COHEN UNIT #: [id number] ROOM/BED: [place] [address] : 02 AGE: 19 SEX: F ATTEND: Madai Thrasher MD ADM AUTHOR: Taylor Thrasher MD * ALL edits or amendments must be made on the [employer]tMob/Easydiagnosis document * Subjective Subjective Admission EGA: Weeks: 38 Days: 1 EGA at delivery (wks/days): 38 weeks (1 day) Status/Day: post Objective General VS: Vital Signs: Date Time Temp Pulse Resp B/P B/P Pulse O2 O2 F low FiO2 Mean Ox Delivery Rate 07/29 0718 37.0 90 17 105/59 98 07/28 1510 36.7 88 16 95/55 100 PATIENT WEIGHT: Weight (lb): 180 Weight (oz): Weight (kg): 81.647 Physical Exam Lungs: No distress Neuro: Exam: alert, oriented x3, normal speech Abdomen: soft, no abnormal tenderness, no guardi ng, no rebound tenderness Incision site: none Uterus: non-tender Fundus: non-tender Lochia: normal Lacerations: Perineal laceration(s): None Episiotomy or laceration: none Vulva/Perineum: normal, no hematoma CVA tenderness: none Lower extremities: Edema: trace Diagnosis, Assessment Plan Diagnosis, Assessment Plan Assessment: nml progress Plan: routine care, discharge today Consultation(s): Consultation performed: anesthesia at 1254 RPT #:[id number] END OF REPORT 2020-07-28 10:39:00-00:00 [facility] ([facility]) OB Disch REPORT#:[id number] REPORT STATUS: Signed DATE:07/28/20 TIME: 1039 PATIENT: GRUPO COHEN UNIT #: [id number] ROOM/BED: [place] [address] : 02 AGE: 19 SEX: F ATTEND: Madai Thrasher MD ADM AUTHOR: Taylor Thrasher MD * ALL edits or amendments must be made on the twtMob/computer document * Subjective Subjective Admission EGA: Weeks: 38 Days: 1 EGA at delivery (wks/days): 38 weeks (1 day) Status/day: post Objective General VS: Vital Signs Date Temp Pulse Resp B/P B/P Mean Pulse Ox FiO2 07/27-07/28 36.6-37.2 83-206 16-18 101-231/51-14 64.0-172.0 73-100 6 Last Documented: Result Date Time Pulse Ox 100 07/28 715 B/P 111/70 07/28 715 Temp 36.8 07/28 715 Pulse 86 07/28 715 Resp 16 07/28 715 B/P Mean 104.0 07/27 1442 PATIENT WEIGHT: Weight (lb): 180 Weight (oz): Weight (kg): 81.647 Physical Exam Lungs: unlabored breathing Neuro: Exam: alert, oriented x3, normal speech Abdomen: post gravid Incision site: none Uterus: non-tender Fundus: non-tender Lochia: normal Episiotomy or laceration: none Vulva/Perineum: normal, no hematoma CVA tenderness: none Lower extremities: Edema: trace Results Findings/Data: Laboratory Tests: 07/28 07/27 07/27 0400 0645 0641 Hematology WBC (6.0 - 17.0 x10 3/uL) 16.1 12.8 RBC (4.2 - 5.4 x10 6/uL) 3.68 L 4.08 L Hgb (8.9 - 13.5 g/dL) 10.0 11.1 Hct (31.0 - 41.0 %) 32.2 35.1 MCV (77.0 - 87.0 fL) 87.5 H 86.0 MCH (26.0 - 30.0 pg) 27.2 27.2 MCHC (32.0 - 36.0 g/dL) 31.1 L 31.6 L RDW (11.5 - 14.5 %) 12.9 12.8 Plt Count (150 - 400 x10 3/uL) 180 218 MPV (7.0 - 9.0 fL) 11.3 H 11.2 H Neut % (Auto) (32.0 - 54.0 %) 73.9 H 71.6 H Lymph % (Auto) (28.0 - 48.0 %) 16.4 L 18.4 L [place] % (Auto) (3.0 - 15.0 %) 8.0 8.2 Eos % (Auto) (1.0 - 8.0 %) 0.7 L 0.7 L Baso % (Auto) (0.0 - 2.0 %) 0.2 0.4 Neut # (Auto) (2.0 - 3.2 x10 3/uL) 11.85 H 9.13 H Lymph # (Auto) (1.0 - 3.8 x10 3/uL) 2.64 2.35 Charles Mix # (Auto) (0.1 - 0.8 x10 3/uL) 1.29 H 1.04 H Eos # (Auto) (0.0 - 0.4 x10 3/uL) 0.11 0.09 Baso # (Auto) (0.0 - 0.2 x10 3/uL) 0.04 0.05 Abs Immat Gran (auto) (0.00 - 0.03 x10 3/uL) 0. 13 H 0.09 H Add Manual Diff NO NO Immature Gran % (0.0 - 2.0 %) 0.8 0.7 Nucleated RBC % (0 - 0 %) 0.0 0.0 Nucleated RBCs # (Man) (0.0 - 0.1 x10 3/uL) 0.0 0 0.00 Serology RPR (NONREACTIVE) NONREACTIVE Hep Bs Antigen (NonReactive INDEX) NON REACTIVE HIV 1 2 Antibody (NONREACTIVE INDEX) NONREACTIV E SARS-CoV-2 Ag (Rapid) (Negative) Negative Discharge Summary General Date of admission: Date of admission: 07/27/20 Admission diagnosis: labor-spontaneous Hospital course: spontaneous labor, spontaneous vag delivery, epidural anesthesia, nml postop/postpart care Procedures: spontaneous vaginal deliv Discharge condition: stable Discharge to: Home/Self Care Discharge diagnosis: full-term uncomp delivery Baby A: Vaginal delivery: spontaneous status: live born Gender: female 1 minute: 8 5 minutes: 8 Plan: routine care, discharge tomorro w Vaginal packing at delivery: No Discharge Instructions Instructions: routine instr sheet given, instr a nd warnings rev'd, specific instr as noted Diet: Regular Activity: No [place] for 6 Wks Additional discharge routines: Attending Follow- Up Contraception discussed: abstinence for 4-6 week s, will discuss at PP visit Discharge meds: Continue taking these medications: PNV/FE FUM/FA ( MULTIVITAMIN) 1 TAB TAB 1 TABLET ORAL DAILY. levETIRAcetam (KEPPRA) 1,000 MG TAB Start taking the following new medications: IBUPROFEN (MOTRIN) 800 MG TAB 800 MILLIGRAM ORAL THREE TIMES DAILY NEEDED. as needed for PAIN Qty = 45 No Refills Prescriptions: on chart Consultation(s): Consultation performed: anesthesia at 1042 RPT #:[id number] END OF REPORT 2020-07-28 10:15:00-00:00 [facility] ([facility]) OB Postpart Progr Note REPORT#:[id number] REPORT STATUS: Signed DATE:07/28/20 TIME: 1015 PATIENT: GRUPO COHEN UNIT #: [id number] ROOM/BED: [place] [address] : 02 AGE: 19 SEX: F ATTEND: Madai Thrasher MD ADM AUTHOR: Taylor Thrasher MD * ALL edits or amendments must be made on the [employer] document * Subjective Subjective Admission EGA: Weeks: 38 Days: 1 EGA at delivery (wks/days): 38 weeks (1 day) Status/Day: post Objective General VS: Vital Signs: Date Time Temp Pulse Resp B/P B/P Pulse O2 O2 F low FiO2 Mean Ox Delivery Rate 07/28 715 36.8 86 16 111/70 100 07/28 0405 37.0 83 16 112/68 98 12/09 0015 36.8 85 17 131/76 99 12/08 2030 36.7 101 18 137/77 98 12/08 1910 96 17 97 12/08 1515 37.2 122 18 123/71 98 12/08 1442 104.0 12/08 1442 110 145/76 12/08 1430 18 12/08 1427 99.0 12/08 1427 101 139/71 12/08 1412 93.0 12/08 1412 109 134/71 12/08 1355 83.0 12/08 1355 116 124/60 12/08 1342 93.0 12/08 1342 109 143/64 12/08 1330 18 12/08 1327 86.0 12/08 1327 103 131/66 12/08 1315 16 12/08 1314 89.0 12/08 1314 108 131/66 12/08 1307 172.0 12/08 1307 206 231/146 12/08 1304 114.0 12/08 1304 100 158/98 100 12/08 1302 115 100 12/08 1300 18 100 12/08 1257 155.0 12/08 1257 94 194/127 92 12/08 1256 117 87 12/08 1252 109 100 12/08 1247 107 100 12/08 1246 36.6 18 12/08 1242 129 89 12/08 1239 108 73 12/08 1237 108 100 12/08 1232 123 98 12/08 1230 120 93 12/08 1227 102 98 12/08 1225 91 88 12/08 1222 110 100 12/08 1219 110 87 12/08 1217 101 100 12/08 1214 110 89 12/08 1212 102 100 12/08 1207 100 100 12/08 1204 36.6 101 18 90 12/08 1202 97 98 12/08 1158 87.0 12/08 1158 108 115/74 12/08 1157 107 100 12/08 1152 96 100 12/08 1147 95 98 12/08 1142 78.0 12/08 1142 108 111/54 99 12/08 1137 119 100 12/08 1132 112 100 12/08 1129 64.0 12/08 1129 100 106/57 12/08 1127 101 100 12/08 1122 99 100 12/08 1119 102 81 12/08 1117 95 100 12/08 1112 71.0 07/27 1112 106 101/51 99 / 1107 116 100 07/27 1102 101 96 07/27 1059 117 93 07/27 1057 74.0 07/27 1057 93 104/51 100 / 1052 95 89 07/27 1047 105 99 07/27 1042 106 100 / 1037 115 100 / 1032 116 100 / 1031 81.0 07/27 1031 109 122/58 07/27 1029 107 89 07/27 1026 106 99 07/27 1024 102 89 07/27 1021 94 100 07/27 1016 94.0 07/27 1016 101 127/75 100 PATIENT WEIGHT: Weight (lb): 180 Weight (oz): Weight (kg): 81.647 Physical Exam Lungs: No distress Neuro: Exam: alert, oriented x3, normal speech Abdomen: soft, no abnormal tenderness, no guardi ng, no rebound tenderness Incision site: none Uterus: non-tender Fundus: non-tender Lochia: normal Lacerations: Perineal laceration(s): None Episiotomy or laceration: none Vulva/Perineum: normal, no hematoma CVA tenderness: none Lower extremities: Edema: trace Result Findings/Data: Laboratory Tests: 07/28 0400 Hematology WBC (6.0 - 17.0 x10 3/uL) 16.1 RBC (4.2 - 5.4 x10 6/uL) 3.68 L Hgb (8.9 - 13.5 g/dL) 10.0 Hct (31.0 - 41.0 %) 32.2 MCV (77.0 - 87.0 fL) 87.5 H MCH (26.0 - 30.0 pg) 27.2 MCHC (32.0 - 36.0 g/dL) 31.1 L RDW (11.5 - 14.5 %) 12.9 Plt Count (150 - 400 x10 3/uL) 180 MPV (7.0 - 9.0 fL) 11.3 H Neut % (Auto) (32.0 - 54.0 %) 73.9 H Lymph % (Auto) (28.0 - 48.0 %) 16.4 L Charles [place] % (Auto) (3.0 - 15.0 %) 8.0 Eos % (Auto) (1.0 - 8.0 %) 0.7 L Baso % (Auto) (0.0 - 2.0 %) 0.2 Neut # (Auto) (2.0 - 3.2 x10 3/uL) 11.85 H Lymph # (Auto) (1.0 - 3.8 x10 3/uL) 2.64 Charles Mix # (Auto) (0.1 - 0.8 x10 3/uL) 1.29 H Eos # (Auto) (0.0 - 0.4 x10 3/uL) 0.11 Baso # (Auto) (0.0 - 0.2 x10 3/uL) 0.04 Abs Immat Gran (auto) (0.00 - 0.03 x10 3/uL) 0. 13 H Add Manual Diff NO Immature Gran % (0.0 - 2.0 %) 0.8 Nucleated RBC % (0 - 0 %) 0.0 Nucleated RBCs # (Man) (0.0 - 0.1 x10 3/uL) 0.0 0 Diagnosis, Assessment Plan Diagnosis, Assessment Plan Assessment: nml progress Plan: routine care, discharge tomorro w Consultation(s): Consultation performed: anesthesia Plan discussed with: patient, nurse at 1016 RPT #:[id number] END OF REPORT 2020-07-27 13:26:00-00:00 [facility]) OB Delivery Note REPORT#:[id number] REPORT STATUS: Signed DATE:07/27/20 TIME: 1326 PATIENT: GRUPO COHEN UNIT #: [id number] ROOM/BED: [place] [address] : 02 AGE: 19 SEX: F ATTEND: Madai Thrasher MD ADM AUTHOR: Taylor Thrasher MD * ALL edits or amendments must be made on the el [employer]/computer document * OB Delivery Pre-delivery GBS status: GBS status: negative evaluation at delivery: NRP certified pe rsonnel Admission EGA: Weeks: 38 Days: 1 EGA at delivery (wks/days): 38 weeks (1 day) Baby A Information Baby A information Delivery date: 07/27/20 Delivery time: 1242 status: live born Wt of baby (grams): 3080 Gender: female 1 minute: 8 5 minutes: 8 Presentation: vertex ABG details Baby A Cord blood gases: not collected Nuchal cord Baby A Nuchal cord: yes (loose and reduced) Vaginal Delivery Vaginal delivery: Labor: spontaneous Medications/Devices used: oxytocin Vaginal delivery: spontaneous Amniotic fluid: clear Anesthesia type: epidural anesthesia Episiotomy: none Episiotomy repair: no Laceration repair: no Placenta: intact Post delivery meds used: oxytocin Count: correct, vag exam neg for sponges Vaginal packing: Yes Mother's condition: mother stable 's condition: infant stable in room Lacerations: Perineal laceration(s): None Extraction details OVD performed: no Shoulder dystocia present: no Blood Loss/Details Blood loss at delivery: <1000 ml, no more than e xpected QBL at delivery (ml's): 256 EBL at delivery (ml's): 250 at 1328 RPT #:[id number] END OF REPORT 2020-07-27 12:54:00-00:00 [facility] ([facility]) OB Admission / H P REPORT#:[id number] REPORT STATUS: Signed DATE:07/27/20 TIME: 1254 PATIENT: GRUPO COHEN UNIT #: [id number] ROOM/BED: [place] [address] : 02 AGE: 19 SEX: F ATTEND: Madai Thrasher MD ADM AUTHOR: Taylor Thrasher MD * ALL edits or amendments must be made on the el [employer]/computer document * OB History Chief complaint: uterine contractions history: Complications (prev preg): none Current : Admission EGA (weeks) 39 Admission EGA (days) 3 Past surgical history: denies PSH Family history Relation not specified for: Family History: Unknown Allergies Coded Allergies: No Known Allergies (07/27/20) Objective General VS: Last Documented: Result Date Time B/P Mean 87.0 07/27 1158 B/P 115/74 07/27 1158 Pulse 108 07/27 1158 Pulse Ox 100 07/27 1157 Temp 36.7 07/27 1008 Resp 18 07/27 1008 Vital Signs Date Temp Pulse Resp B/P B/P Mean Pulse Ox FiO2 07/27 36.6-36.7 89-130 18 75-139/43-76 53.0-94. 0 81-100 PATIENT WEIGHT: Weight (lb): 180 Weight (oz): Weight (kg): 81.647 Physical Exam HEENT: normocephalic w/o injury Lungs: unlabored breathing Breasts: deferred Neuro: Exam: alert, oriented x3, normal speech Abdomen: gravid, soft, no abnormal tenderness, n o guarding, no rebound tenderness Genitourinary: no brizuela Uterine activity: Monitor: toco Intensity: moderate Pelvic exam: Sterile speculum exam: pooling, no bleeding, GR OSSLY RUPTURED, CLEAR FLUID Cervical/ exam: Dilatation (cm): 4 Effacement (%): 70 station: - 3 (on admission) Membranes: Membranes: SROM ROM date: 07/27/20 ROM time: 0030 Amniotic fluid: clear Lower extremities: Edema: trace Baby A: Baby A baseline: 130 bpm Baby A variability: moderate 6-25 bpm Baby A accelerations: 15 X 15 Baby A decelerations: none Baby A FHR category: category 1 Result Findings/Data: Laboratory Tests: 07/27 07/27 0645 0641 Hematology WBC (6.0 - 17.0 x10 3/uL) 12.8 RBC (4.2 - 5.4 x10 6/uL) 4.08 L Hgb (8.9 - 13.5 g/dL) 11.1 Hct (31.0 - 41.0 %) 35.1 MCV (77.0 - 87.0 fL) 86.0 MCH (26.0 - 30.0 pg) 27.2 MCHC (32.0 - 36.0 g/dL) 31.6 L RDW (11.5 - 14.5 %) 12.8 Plt Count (150 - 400 x10 3/uL) 218 MPV (7.0 - 9.0 fL) 11.2 H Neut % (Auto) (32.0 - 54.0 %) 71.6 H Lymph % (Auto) (28.0 - 48.0 %) 18.4 L [place] % (Auto) (3.0 - 15.0 %) 8.2 Eos % (Auto) (1.0 - 8.0 %) 0.7 L Baso % (Auto) (0.0 - 2.0 %) 0.4 Neut # (Auto) (2.0 - 3.2 x10 3/uL) 9.13 H Lymph # (Auto) (1.0 - 3.8 x10 3/uL) 2.35 Charles [place] # (Auto) (0.1 - 0.8 x10 3/uL) 1.04 H Eos # (Auto) (0.0 - 0.4 x10 3/uL) 0.09 Baso # (Auto) (0.0 - 0.2 x10 3/uL) 0.05 Abs Immat Gran (auto) (0.00 - 0.03 x10 3/uL) 0. 09 H Add Manual Diff NO Immature Gran % (0.0 - 2.0 %) 0.7 Nucleated RBC % (0 - 0 %) 0.0 Nucleated RBCs # (Man) (0.0 - 0.1 x10 3/uL) 0.0 0 Serology RPR (NONREACTIVE) NONREACTIVE Hep Bs Antigen (NonReactive INDEX) NON REACTIVE HIV 1 2 Antibody (NONREACTIVE INDEX) NONREACTIV E SARS-CoV-2 Ag (Rapid) (Negative) Negative Diagnosis, Assessment Plan Diagnosis, Assessment Plan Free Text A P: 19 yr old P2012 LMP: 10/09 ED C: 08/09/20 @ 38+1 week s GA dated by 6+1 week sono on 12/16/19 presenting with contractions and LOF @ 12am. She has no other acute complaints at this time. Denies headaches, blurr y vision, nausea, vomiting or vaginal bleeding. +FM. PNC complicated by: Epilepsy - Last episode 10/2019 - On Keppra. Hx of depression/anxiety- For SW pp UDS pos for amphetamines and MJ+ Teen . Short Interval. Scant care - No GCT OBhx: Full term NVD x 2 GynHx: Denies MHx: Seizure Disorder x 3 episodes in her life. Last episode October 2019 SurgHx: Denies Family Hx: Cancer SHx: Denies Alcohol, Cigarette and illicit drug Use Meds: PNV Allergy: NKDA Labs: T S: O pos Antibody: Neg Hg Phenotype: AA H/H: 13.3/39.5 Plt: 332 HIV: Neg HbsAg: Neg Rubella: Immune VZ: Immune RPR: NR GC/Chlam: Neg AFP: WNL GBS: Neg 12/30/19-Sono: IUP with CRL c/w 8+2 weeks GA: FHR : 166BPM. 12/16/19-Sono: IUP with CRL c/w 6+1 weeks GA. FHR : 116bpm. Imp: IUP @ 38+1 weeks GA in labor. GBS Neg. Plan: admit to laboir and delivery Labs EFM Bedias at 1302 RPT #:[id number] END OF REPORT 2020-07-27 06:30:00-00:00 [facility] GLADIS Evaluation Note REPORT#:[id number] REPORT STATUS: Signed DATE:07/27/20 TIME: 629 PATIENT: GRUPO COHEN UNIT #: [id number] ROOM/BED: [place] [address] : 02 AGE: 19 SEX: F ATTEND: Madai Thrasher MD ADM AUTHOR: Estela Green DO * ALL edits or amendments must be made on the [employer]/computer document * GLADIS History Chief complaint: uterine contractions, suspected ruptured memb HPI: 19 Y/O EDC 07/20 VS 07/31, PT IS APPROX 39 W 3 DAY USING EDC 07/31, C/O SROM AT MIDNIGHT AND CXN AT 0200. HERE WITH HER MOTHER. NO BLEEDING, GOOD MVMT. SHE ALSO SEES DR. KEISHA Pennington M. S HE HAS H/O EPILEPSY ON KEPPRA. SHE F/U WITH NEURO FOR THAT. history: : 3 Term: 2 Living children: 2 Complications (prev preg): none Previous : none Current : EDC: 07/31/20 EGA (weeks/days): 39 weeks Labs: Blood type: NONE AT THE MOMENT. Past medical history: seizures Past surgical history: denies PSH Social history: unemployed, single, no alcohol use, no tobacco use, no drug use Family history Relation not specified for: Family History: Unknown Medications: Home Medications: Medication Dose/Rte/Freq Days Qty Entered Last Max Daily Dose Reviewed PNV/FE FUM/FA 1 TAB PO DAILY 03/06/17 ( MULTIVITAMIN) 0711 Strength: 1 TAB TAB levETIRAcetam (KEPPRA) 07/27/20 Strength: 1,000 MG TAB 0551 Current Hospital Medications: Anti-Infective Agents Sig/Marques Start time Last Medication Dose Route Stop Time Status Admin Ampicillin Sodium 1 GM Q4H 07/27 1030 PEND (AMPICILLIN 1GM) IV 08/10 1029 Sodium Chloride 100 ML (SODIUM CHLORIDE 0.9% 100 ML) Ampicillin Sodium 2 GM ASDIR 07/27 630 PEND (Ampicillin 2 gm) IV 07/29 629 Sodium Chloride 100 ML (SODIUM CHLORIDE 0.9% 100 ML) Autonomic Drugs Sig/Marques Start time Last Medication Dose Route Stop Time Status Admin Ephedrine Sulfate 10 MG ASDIR PRN 07/27 630 PE ND (ePHEDrine sulfate) IV 08/26 628 Ephedrine Sulfate 25 MG ASDIR PRN 07/27 630 PE ND (ePHEDrine sulfate) IM 08/26 628 Cardiovascular Drugs Sig/Marques Start time Last Medication Dose Route Stop Time Status Admin Hydralazine HCl 10 MG ONCE PRN 07/27 630 PEND (APRESOLINE) IV 08/26 628 Labetalol HCl 20 MG ONCE PRN 07/27 630 PEND (LABETALOL HCL) IV 08/26 628 Labetalol HCl 40 MG ONCE PRN 07/27 630 PEND (LABETALOL HCL) IV 08/26 628 Labetalol HCl 80 MG ONCE PRN 07/27 630 PEND (LABETALOL HCL) IV 08/26 628 Lidocaine HCl 30 ML ASDIR PRN 07/27 630 PEND (XYLOCAINE 1%) LOCAL 08/26 628 Central Nervous System Agents Sig/Marques Start time Last Medication Dose Route Stop Time Status Admin Ammonia (Strong) 1 ML ASDIR PRN 07/27 630 PEND (AMMONIA AROMATIC) NASAL 08/26 628 Ropivacaine/Fentanyl/ 0 ASDIR PRN 07/27 0630 PE ND NS EPIDURAL 08/26 628 (fentaNYL/ROP 200 MCG/0.125% 100ML CASSETTE) Electrolytic, Caloric, And Rylee Sig/Marques Start time Last Medication Dose Route Stop Time Status Admin Citric Acid/Sodium 30 ML ONCE PRN 07/27 0630 PE ND Citrate PO 08/26 628 (BICITRA ADULT DOSE) Lactated Ringer's 1,000 ML BOLUS PRN 07/27 630 PEND (LACTATED RINGERS) IV 08/26 628 Lactated Ringer's 1,000 ML .Q8H 07/27 630 PEND (LACTATED RINGERS) IV 08/26 628 Gastrointestinal Drugs Sig/Marques Start time Last Medication Dose Route Stop Time Status Admin Famotidine 20 MG ONCE PRN 07/27 630 PEND (PEPCID) IV 08/26 628 Metoclopramide HCl 10 MG ONCE PRN 07/27 630 PE ND (REGLAN) IV 08/26 628 Mineral Oil 30 ML ASDIR PRN 07/27 630 PEND (MINERAL OIL) TOPICAL 08/26 628 Misoprostol 800 MCG ONCE PRN 07/27 630 PEND (miSOPROStoL) RECTAL 08/26 628 Ondansetron HCl 4 MG Q4H PRN PRN 07/27 630 PEN D (ZOFRAN) IV 08/26 628 Local Anesthetics (Parenteral) Sig/Marques Start time Last Medication Dose Route Stop Time Status Admin Bupivacaine HCl 0 ASDIR PRN 07/27 630 PEND (MARCAINE) EPIDURAL 08/26 628 Oxytocics Sig/Marques Start time Last Medication Dose Route Stop Time Status Admin Carboprost 250 MCG ONCE PRN 07/27 630 PEND Tromethamine IM 08/26 628 (HEMABATE) Methylergonovine 0.2 MG ONCE PRN 07/27 630 PE ND Maleate IM 08/26 628 (METHERGINE) Oxytocin 500 ML ASDIR 07/27 630 PEND (OXYTOCIN 30 UNIT/NS IV 08/26 628 500ML) Oxytocin 333.33 ML BOLUS PRN 07/27 630 PEND (OXYTOCIN 30 UNIT/NS IV 08/26 628 500ML) Allergies Coded Allergies: No Known Allergies (07/27/20) Review of Systems Constitutional: Denies: fever. ENT: Denies: sore throat. Respiratory: Denies: non productive cough. GI: Denies: constipation, diarrhea, nausea, vomiting . : Reports: . Denies: vaginal bleeding. Neuro: Denies: headache. Objective General VS: Last Documented: Result Date Time Pulse Ox 98 07/27 0559 Pulse 112 07/27 0559 B/P Mean 84.0 07/27 0550 B/P 119/61 12/ 0550 Resp 18 / 0550 Vital Signs Date Temp Pulse Resp B/P B/P Mean Pulse Ox FiO2 07/27 107-117 18 119/61 84.0 97-98 PATIENT WEIGHT: Weight (lb): 180 Weight (oz): Weight (kg): 81.647 Physical Exam HEENT: normocephalic w/o injury, no scleral icte anupama Lungs: unlabored breathing Breasts: deferred Neuro: Exam: alert, oriented x3, normal speech Abdomen: gravid, soft, no abnormal tenderness Genitourinary: no brizuela Uterine activity: Monitor: toco Frequency (description): irritability, irregula r Pelvic exam: Sterile speculum exam: pooling, no bleeding, GR OSSLY RUPTURED, CLEAR FLUID Cervical/ exam: Dilatation (cm): 4 Effacement (%): 80 station: 0 FHR evaluation: Baseline: 140 bpm Variability: moderate 6-25 bpm Accelerations: 15 X 15 Decelerations: none FHR category: category 1 Membranes: Membranes: SROM ROM date: 07/27/20 ROM time: 0010 Amniotic fluid: clear Odor: none Diagnosis, Assessment Plan Diagnosis, Assessment Plan Free Text A P: 19 Y/O P2 AT 39 W3DAY SROM IN EARLY LABOR D/W DR. MCLAUGHLIN WHO WILL ADMIT AND PRESUME CARE. at 0635 RPT #:[id number] END OF REPORT 2020-07-27 06:26:00-00:00 [facility] ([facility]) OB Medical Screening Exam REPORT#:[id number] REPORT STATUS: Signed DATE:07/27/20 TIME: 625 PATIENT: GRUPO COHEN UNIT #: [id number] ROOM/BED: [place] [address] : 02 AGE: 19 SEX: F ATTEND: Sal Trinh MD ADM AUTHOR: Estela Green DO * ALL edits or amendments must be made on the el [employer]/computer document * Medical Screening Exam Provider Attestation Comments: PT TRIAGED AT 0600, I WAS CONTACTED AT 0555 ABOU PT. at 0645 RPT #:[id number] END OF REPORT
--- NOTE | 2023-05-07 19:25 | ER ---
Nurse's Notes [facility] Name: Alida Cohen Age: 22 yrs Sex: Female : 2000 Arrival Date: 05/07/2023 Time: 17:58 Bed Waiting Private MD: Diagnosis: Pain in right forearm Historical: Assessment: 05/07 19:26 General: pt discharged before receiving paper work. as6 ED Course: 17:59 Patient arrived in ED. mr 18:00 Kayce Lamb FNP-C is PHCP. kb 18:00 Rola Mena MD is Attending Physician. kb 19:12 Triage completed. me1 19:18 Notified triage nurse. Radiology exam delayed due to pt not in lobby. is 19:26 Patient's name was called from ER lobby. No response. Unable to locate patient. Will as6 disposition as left without being seen by a provider. Administered Medications: No medications were administered Outcome: 19:25 Discharge ordered by . kb 19:27 Patient left the ED. as6 Signatures: Kayce Lamb FNP-C ANGLE SHEAR SET UP OPERATOR-CkCharisse Galaviz, Reg Reg Cally Allen is Mil [place], RN RN as6 Chantell Bae RN RN me1 Corrections: (The following items were deleted from the chart) 19:17 19:00 The history from the nurse's notes was reviewed. [facility] 19:17 19:12 Allergies: No Known Allergies; [place] [id number] 19:17 19:12 Home Meds: None; [place] [id number] 19:17 19:12 PMHx: None; [place] [id number] 19:17 19:12 PSHx: None; [place] [id number] 19:17 19:12 Immunization history: Adult Immunizations up to date, [place] [id number] 19:17 19:12 Social history: Smoking status: Reported history of juuling and/or vaping. [place] [id number] 19:17 19:09 Chief complaint: Patient states: s/p fall yesterday with left elbow pain. [place] [id number] 19:17 19:09 Coronavirus screen: Vaccine status: Patient reports being unvaccinated. [place] [id number] 19:17 19:09 Ebola Screen: No symptoms or risks identified at this time. [place] [id number] 19:17 19:09 Initial Sepsis Screen: Does the patient meet any 2 criteria? No. Patient's [facility] initial sepsis screen is negative. Does the patient have a suspected source of infection? No. Patient's initial sepsis screen is negative. [facility] 19: 19:09 Risk Assessment: Do you want to hurt yourself or someone else? Patient reports no [facility] desire to harm self or others. [facility] : 19:09 Onset of symptoms was May 06, 2023 [place] [id number] 19: 19:09 Method Of Arrival: Ambulatory [place] [address] 19: 19:09 BP 124 / 83; Pulse 93bpm; Resp 16bpm; Pulse Ox 100% RA; Temp 98.4F Temporal; [facility] 54.43 kg; Height 5 ft. 4 in.; BMI: 20.6; [facility] : 19:09 Acuity: CLYDE 4 [place] [id number] : 19:12 LMP 04/06/2023 [place] [id number] : 19:12 Arm band placed on Patient placed in waiting room, [place] [id number]
--- NOTE | 2023-05-07 19:26 | EDPHYS ---
Physician Documentation [facility] Name: Alida Cohen Age: 22 yrs Sex: Female : 2000 Arrival Date: 05/07/2023 Time: 17:58 Bed Waiting Private MD: ED Physician Rola Mena HPI: 05/07 19:00 This 22 yrs old Female presents to ER via Unassigned with complaints of Arm Pain. kb 19:00 The patient or guardian complains of pain, tenderness. Severity of symptoms: At their worst the symptoms were mild, moderate, in the emergency department the symptoms are unchanged. The patient has not experienced similar symptoms in the past. The patient has not recently seen a physician. 19:02 The complaints affect the right forearm. Context: The problem was sustained at the [facility], resulted from unknown cause. Onset: The symptoms/episode began/occurred 2 week(s) ago. Treatment prior to arrival includes: no previous treatment. Modifying factors: The symptoms are alleviated by nothing. the symptoms are aggravated by nothing. Associated signs and symptoms: Pertinent positives: pain, tingling. Pt reports pain, tenderness and tingling to right forearm for 2 weeks. states she had a baby 2 weeks ago and the iv was in that arm. Historical: ROS: 19:02 Constitutional: Negative for fever, chills, and weight loss, kb 19:02 MS/extremity: Positive for pain, of the right forearm, 19:02 All other systems are negative, Exam: 19:02 Constitutional: This is a well developed, well nourished patient who is awake, alert, kb and in no acute distress. Head/Face: Normocephalic, atraumatic. ENT: Moist Mucous membranes Cardiovascular: Regular rate Respiratory: Respirations even and unlabored. No increased work of breathing. Talking in full sentences Skin: Warm, dry with normal turgor. Normal color. Neuro: Awake and alert, GCS 15, oriented to person, place, time, and situation. Moves all extremities. Normal gait. 19:02 Musculoskeletal/extremity: Extremities: grossly normal except: noted in the right forearm: pain, tenderness, ROM: intact in all extremities, Circulation is intact in all extremities. Sensation intact. MDM: 18:00 Patient medically screened. kb 19:03 Differential diagnosis: tendonitis, dvt. Data reviewed: vital signs, nurses notes. 19:24 ED course: Pt elected to leave prior to US. Pt no longer in lobby when radiology and kb triage nurse looked for her. . Administered Medications: No medications were administered Disposition Summary: 05/07/23 19:25 Discharge Ordered Notes: Location: Home kb Condition: Stable kb Diagnosis - Pain in right forearm kb Followup: kb - With: Emergency Department - When: As needed - Reason: Worsening of condition Followup: kb - With: Private Physician - When: 2 - 3 days - Reason: Recheck today's complaints, Continuance of care, Re-evaluation by your physician Discharge Instructions: - Discharge Summary Sheet kb - Musculoskeletal Pain kb Forms: - Medication Reconciliation Form kb - Thank You Letter kb - Antibiotic Education kb - Prescription Opioid Use kb - Patient Portal Instructions kb - Leadership Thank You Letter kb Signatures: Dispatcher [employer] [facility] Kayce Lamb FNP-C FNP-Chantell Pacheco, RN RN me1 Corrections: (The following items were deleted from the chart) 18:56 18:03 Extremity Venous [email or web address] ordered. [facility] 19:17 19:00 The history from the nurse's notes was reviewed. me1 19:17 19:12 Allergies: No Known Allergies; me1 me1 19:17 19:12 Home Meds: None; me1 me1 19:17 19:12 PMHx: None; me1 me1 19:17 19:12 PSHx: None; me1 me1 19:17 19:12 Immunization history: Adult Immunizations up to date, al1 me1 19:17 19:12 Social history: Smoking status: Reported history of juuling and/or vaping. me1 me1
== END 2023-05-07 19:27 | disposition home or self-care (01) ==
LOC: ER 17:58
DX: M79.631 Pain in right forearm (principal)